=== PATIENT | male | born 1995 | race Caucasian/White ===

== ENCOUNTER 2021-02-20 16:31 | Emergency (ER) | payer OTHER, SELFPAY ==
[2021-02-20 16:43] VITALS: BP 156/102; PULSE 80; RESP 18; TEMP 36.6; O2SAT 98
--- NOTE | 2021-02-20 16:50 | ED.URI ---
HPI - URI/Sore Throat General Chief Complaint: Upper Respiratory Infection Stated Complaint: headache sore throat Time Seen by Provider: 02/20/21 16:50 Source: patient and RN notes reviewed History of Present Illness HPI Narrative: Patient is a 25-year-old male who presents the urgent care with complaints of headache and sore throat that started today. Patient states he has had a headache for the last 2 days and has been taking Tylenol. States that his entire family wants tested for Covid because they were at his [id number] recently and are concerned . Patient denies of any known fevers, nausea, vomiting. No other acute complaints. No acute distress noted. Patient aware of the plan of care. Some parts of this dictation were generated by voice recognition software and may contain typographical and/or grammatical inaccuracies. Related Data Home Medications Medication Instructions Recorded Confirmed cyclobenzaprine 10 mg PO TID 02/20/21 02/20/21 diclofenac sodium 75 mg PO DAILY 02/20/21 02/20/21 hydrocodone-acetaminophen 10 tablet PO TID 02/20/21 02/20/21 Allergies Allergy/AdvReac Type Severity Reaction Status Date / Time No Known Allergies Allergy Verified 02/20/21 16:53 Review of Systems Review of Systems: CONSTITUTIONAL: Denies fever, chills, or sweats. EYES: Denies visual changes, redness, or discharge. ENT: Denies rhinorrhea, congestion, otalgia. Reports of sore throat CARDIOVASCULAR: Denies chest pain, palpitations, or edema. RESPIRATORY: Denies cough or dyspnea. GASTROINTESTINAL: Denies abdominal pain, nausea, vomiting, or diarrhea. GENITOURINARY: Denies dysuria or hematuria. SKIN: Denies rash or itching. MUSCULOSKELETAL: Denies back pain, joint pain, or myalgia. NEUROLOGIC: Reports of headache All other systems reviewed are negative, except as documented in HPI. PMFSH Comments At the time of my signature, I reviewed and agree with the nursing past medical, surgical, social, and family history. There is no relevant family history pertinent to the patient complaint. Exam Narrative: GENERAL: This is a well-nourished, well-developed patient, in no apparent distress. HEAD: normocephalic, atraumatic. EYES: PERRL. Sclera clear/white. Vision is grossly intact. EARS: External ears normal, auditory canals clear and without drainage, bilateral cerumen noted without impaction, TMs normal without perforation. Hearing grossly intact. NOSE: External nose normal with no obvious nasal discharge, nares without redness, no rhinorrhea. THROAT: Mucous membranes moist, posterior pharynx clear. Mild postnasal drainage NECK: Neck supple CARDIOVASCULAR: Regular rate and rhythm without murmurs, gallops, or rubs. RESPIRATORY: Clear to auscultation. Breath sounds equal bilaterally. No wheezes, rales, or rhonchi. SKIN: warm, intact with no suspicious lesions or rash, good texture and turgor. NEURO: awake, alert, and oriented to person, place and time. There were no obvious focal neurologic abnormalities. EXTREMITIES: No clubbing, cyanosis, or edema. Course Vital Signs Vital signs: Vital Signs Temperature 97.8 F 02/20/21 16:43 Pulse Rate 80 02/20/21 16:43 Respiratory Rate 18 02/20/21 16:43 Blood Pressure 156/102 H 02/20/21 16:43 Pulse Oximetry 98 02/20/21 16:43 Temperature 97.8 F 02/20/21 16:43 Pulse Rate 80 02/20/21 16:43 Respiratory Rate 18 02/20/21 16:43 Blood Pressure 156/102 H 02/20/21 16:43 Pulse Oximetry 98 02/20/21 16:43 Reviewed-patient is informed that they may have pre-hypertension or hypertension based on a blood pressure reading in the department. I recommend the patient call the primary care provider listed on their discharge instructions or a physician of their choice this week to arrange follow-up for further evaluation of possible pre-hypertension or hypertension. MDM - URI/Sore Throat MDM Narrative Medical decision making narrative: Reviewed lab results with rosetta
== END 2021-02-20 17:24 | disposition home or self-care (01) ==
PROVIDERS: Emergency Provider Nurse Practitioner Family; PCP Family Medicine
DX: J02.9 Acute pharyngitis, unspecified (principal); Z20.822 Contact with and (suspected) exposure to COVID-19
CPT/HCPCS: 87081; 87880; 99203; G0463

== ENCOUNTER 2021-04-17 14:55 | Outpatient (CLI) | payer OTHER, SELFPAY ==
[2021-04-17 19:05] LABS: Hematocrit 46.7 % (42.0-52.0); Hemoglobin 15.9 g/dL (14.0-18.0); Mean Corpuscular Hemoglobin 29.1 pg (26-34); Mean Corpuscular Volume 85.4 fl (80-100); Mean Platelet Volume 9.5 fl (7.4-10.4); Platelet Count Result 333 k/mm3 (150-375); Red Blood Count 5.47 M/mm3 (4.6-6.20); Red Cell Distribution Width 12.3 % (11.5-14.5); White Blood Count 6.2 K/mm3 (4.5-10.0)
[2021-04-17 19:14] LABS: Hemoglobin A1C 4.8 % (<5.7)
[2021-04-17 19:31] LABS: Alanine Aminotransferase 58 U/L (4-50); Albumin Level 4.7 g/dL (3.5-5.1); Alkaline Phosphatase 77 U/L (38-126); Anion Gap 9 mmol/L (8-16); Aspartate Amino Transferase 48 U/L (17-59); Blood Urea Nitrogen 15 mg/dL (9-20); Calcium 9.7 mg/dL (8.4-10.2); Carbon Dioxide 25 mmol/L (22-30); Chloride 102 mmol/L (98-107); Cholesterol 166 mg/dL (0-200); Estimated Glomerular Filt Rate > 60; Glucose 102 mg/dL (65-110); HDL Direct 49 mg/dL; Potassium 4.1 mmol/L (3.4-5.0); Sodium 136 mmol/L (137-145); Triglycerides 157 mg/dL (<150)
[2021-04-17 19:42] LABS: LDL Cholesterol Direct 89 mg/dL
[2021-04-23 04:37] LABS: Amphetamines NEGATIVE ng/mL (<500); Barbiturates NEGATIVE ng/mL (<300); Benzodiazepines NEGATIVE ng/mL (<100); Cocaine Metabolite NEGATIVE ng/mL (<100); Codeine >10000 ng/mL (<50); Hydrocodone NEGATIVE ng/mL (<50); Hydromorphone NEGATIVE ng/mL (<50); Marijuana Metabolite NEGATIVE ng/mL (<20); Methadone Metabolite NEGATIVE ng/mL (<100); Morphine 2100 ng/mL (<50); Norhydrocodone NEGATIVE ng/mL (<50); Opiates POSITIVE ng/mL (<100); Oxidant NEGATIVE mcg/mL (<200); pH 7.3 (4.5-9.0)
== END 2021-04-17 14:56 | disposition home or self-care (01) ==
LOC: ANHBWCLAB 14:56
PROVIDERS: PCP Family Medicine; Visit Provider Family Medicine
DX: Z00.00 Encounter for general adult medical examination without abnormal findings (principal); E66.9 Obesity, unspecified; M54.50 Low back pain, unspecified; M41.9 Scoliosis, unspecified
CPT/HCPCS: 36415; 80053; 80061; 80299; 83036; 85027

== ENCOUNTER 2022-02-13 10:16 | Outpatient (CLI) | payer OTHER, SELFPAY ==
[2022-02-13 20:28] LABS: Alanine Aminotransferase 49 U/L (6-50); Albumin Level 4.5 g/dL (3.5-5.1); Alkaline Phosphatase 78 U/L (38-126); Aspartate Amino Transferase 67 U/L (17-59); Bilirubin,Total 0.9 mg/dL (0.2-1.3)
[2022-02-13 21:50] LABS: Hepatitis B Surface Antigen Negative (Negative)
[2022-02-13 21:53] LABS: HAV RESULT Negative (Negative); Hepatitis B Core IgM Result Negative (Negative)
[2022-02-13 22:08] LABS: Hepatitis C Virus Antibody Negative (Negative)
[2022-02-14 07:21] LABS: Rapid Plasma Reagin Non-Reactive (NonReactive)
[2022-02-15 14:21] LABS: HIV 1 2 Ag Ab 4th Gen w Rflxs Non-reactive (Non-reactive)
== END 2022-02-13 10:17 | disposition home or self-care (01) ==
PROVIDERS: PCP Family Medicine; Visit Provider Family Medicine
DX: R74.8 Abnormal levels of other serum enzymes (principal); R45.4 Irritability and anger; G47.00 Insomnia, unspecified; Z72.51 High risk heterosexual behavior
CPT/HCPCS: 36415; 80074; 80076; 80299; 86592; 87389; 87491; 87591; 87661

== ENCOUNTER 2023-04-21 10:55 | Emergency (ER) | payer OTHER, SELFPAY ==
[2023-04-21 11:05] VITALS: BP 141/84; PULSE 85; RESP 20; TEMP 36.6; O2SAT 97
--- NOTE | 2023-04-21 11:05 | ED.NAVMDI ---
HPI - Nausea/Vomiting/Diarrhea General Chief complaint: Nausea/Vomiting/Diarrhea Stated complaint: Abdominal Pain/Diarrhea/Nausea Time Seen by Provider: 04/21/23 11:05 Source: patient, RN notes reviewed and old records reviewed Mode of arrival: ambulatory Limitations: no limitations History of Present Illness HPI Narrative: 27-year-old male presents to the [facility] with nausea and diarrhea since he woke up at 9:00 a.m., 2 hours prior to arrival. States he has left lower quadrant cramping but no significant pain at this time. Patient states that he does not tried eating, is able to maintain sips of water. Requesting a work note Denies fevers, chest pain, shortness of breath. Patient states he has not taken any of his normal medications for anxiety your chronic pain due to of a family member and car problems. Has been out of his prescribed medication for over a month. Discussed with patient he will need to follow-up with primary care provider Onset (ago): hour(s) (2) Treatment prior to arrival: none Related Data Allergies Allergy/AdvReac Type Severity Reaction Status Date / Time Penicillins Allergy Unknown Unknown Verified 09/02/22 13:07 Review of Systems Review of Systems: All systems reviewed & are unremarkable except as noted in HPI and below Constitutional: Constitutional: Reports no additional constitutional complaints Eyes: Eyes: Reports no additional eye complaints ENT: Reports system reviewed and no additional complaints, except as documented Cardiovascular: Cardiovascular: Reports no additional cardiovascular complaints, Denies chest pain and Denies dyspnea Respiratory: Respiratory: Reports no additional respiratory complaints, Denies chest congestion, Denies cough and Denies dyspnea Gastrointestinal: Gastrointestinal: Reports as per HPI, Denies abdominal pain, Reports diarrhea, Reports nausea, Denies vomiting and Reports other (Left lower quadrant cramping) Musculoskeletal: Musculoskeletal: Reports no additional musculoskeletal complaints Integumentary/Breasts: Skin/Breast: Reports system reviewed and no additional complaints, except as docu Neurologic: Reports system reviewed and no additional complaints, except as documented Psychiatric: Psychiatric: Reports no additional psychiatric complaints Allergic/Immunologic: Allergic/Immunologic: Reports no additional allergic/immunologic complaints PMFSH Past Medical History Medical History Lower back pain Scoliosis Social History Social History (Reviewed 04/21/23 @ 17:03 by TRICIA Glass Smoking status: Never smoker Alcohol intake: never Substance use: never Lack of Transportation: YES Lack of Food: Never True Current Housing: I Have Housing Concerned About Future Housing: No Difficulty Paying Gas/Electric Bills: No Difficulty Paying for Meds: No Currently Unemployed: No Education: High School Diploma/GED Difficulty w/ Childcare or Family Care: No Living arrangements: with family Comments At the time of my signature, I reviewed and agree with the nursing past medical, surgical, social, and family history. There is no relevant family history pertinent to the patient complaint. Exam Const: General: cooperative, healthy appearing, comfortable, no acute distress, well developed, alert and well nourished Nutritional Appearance: well nourished and obese morbidly obese Orientation/consciousness: patient oriented x3 Limitations: no limitations HENMT: Head: normal to inspection Ears: hearing grossly normal bilaterally and external ears normal Face/Nose/Sinus: Normal external nose present, Normal nares present, Normal nasal mucous membranes and turbinates present, normal facial exam and face symmetric Face and sinus: normal facial exam and face symmetric Mouth: Yes lip normal and Yes moist mucous membranes Eyes: General: appearance normal, both eyes and all rel
[2023-04-21 11:06] VITALS: BP 141/84; PULSE 85; RESP 20; TEMP 36.6; O2SAT 97
== END 2023-04-21 11:22 | disposition home or self-care (01) ==
PROVIDERS: Emergency Provider Nurse Practitioner; PCP Family Medicine
DX: R11.2 Nausea with vomiting, unspecified (principal); R19.7 Diarrhea, unspecified; M41.9 Scoliosis, unspecified
CPT/HCPCS: 99213; G0463

== ENCOUNTER 2023-06-16 12:21 | Emergency (ER) | payer OTHER, SELFPAY ==
--- NOTE | 2023-06-16 12:27 | ED.URI ---
HPI - URI/Sore Throat General Chief Complaint: Upper Respiratory Infection Stated Complaint: Body pain/Sore throat/ Fever Time Seen by Provider: 06/16/23 12:35 Source: patient and RN notes reviewed Mode of arrival: ambulatory Limitations: no limitations History of Present Illness HPI Narrative: 28-year-old male presents concern for 2 day history of sore throat, cough, nasal drainage, headache. Reports his children are sick at home. Denies taking any medications for his symptoms. MD elicited complaint: cough and sore throat Related Data Allergies Allergy/AdvReac Type Severity Reaction Status Date / Time Penicillins Allergy Unknown Unknown Verified 09/02/22 13:07 Review of Systems Review of Systems: CONSTITUTIONAL: Reports malaise, fever. EYES: Denies visual changes, redness, or discharge. ENT: Reports rhinorrhea, congestion, and sore throat. CARDIOVASCULAR: Denies chest pain, palpitations, or edema. RESPIRATORY: Reports cough. Denies dyspnea. GASTROINTESTINAL: Denies abdominal pain, nausea, vomiting, diarrhea SKIN: Denies rash or itching. MUSCULOSKELETAL: Denies myalgia. NEUROLOGIC: Reports headache. All systems reviewed & are unremarkable except as noted in HPI and below PMFSH Past Medical History Medical History Lower back pain Scoliosis Social History Social History Smoking status: Never smoker Alcohol intake: never Substance use: never Lack of Transportation: YES Lack of Food: Never True Current Housing: I Have Housing Concerned About Future Housing: No Difficulty Paying Gas/Electric Bills: No Difficulty Paying for Meds: No Currently Unemployed: No Education: High School Diploma/GED Difficulty w/ Childcare or Family Care: No Living arrangements: with family Comments At time of signature, agree with nursing past medical, surgical, social and family history. There is no relevant family history pertinent to the presenting complaint Exam Narrative: GENERAL: Well-appearing, well-nourished, and in no acute distress. HEAD: Normocephalic EYES: PERRLA, conjunctivae clear ENT: Nares clear, turbinates edematous and erythematous, clear discharge. Mucous membranes moist. TM pearly pedersen with dull light reflex bilaterally; no tragal tenderness. Oropharynx not erythematous without lesions. Tonsils not enlarged and without exudate, no drooling, no hoarseness, no trismus, uvula midline. NECK: Supple. No lymphadenopathy CHEST: Clear to auscultation, breath sounds equal. No wheezing, rhonchi, rales, or stridor. No respiratory distress, speaks in full sentences. HEART: Regular rate and rhythm. No murmur heard. SKIN: Warm, dry, no rash. NEURO: Alert and oriented x3. PSYCH: Normal mood and affect Course Course Emergency Course: Patient is aware of diagnosis, understands and agrees to treatment plan. Anticipatory guidance given. Patient agrees to follow-up as directed and is aware of reasons to seek care at the emergency department. Portions of this record may have been created with voice recognition software Level of Care: Express Care Visit Vital Signs Vital signs: Reviewed. MDM - URI/Sore Throat MDM Narrative Medical decision making narrative: Differential diagnosis considered: Curtis virus, strep pharyngitis, allergic rhinitis, upper respiratory tract infection, sinusitis, rhinosinusitis, nasopharyngitis. viral pharyngitis, otitis media, otitis externa, pneumonia, bronchitis, viral cough syndrome, viral syndrome, and influenza. Exam findings show no acute concerns or changes; patient is non-toxic appearing and is in no distress. Patient is appropriate for outpatient treatment and follow-up. Lab Data Attestation: I reviewed the patient's lab results. Critical Care Time Critical Care Time Critical Care Time: No Discharge Plan Discharge Clinical Impression: Upper respira
[2023-06-16 12:36] VITALS: BP 170/94; PULSE 86; RESP 16; TEMP 37.2; O2SAT 98
== END 2023-06-16 13:13 | disposition home or self-care (01) ==
PROVIDERS: Emergency Provider Nurse Practitioner; PCP Family Medicine
DX: J02.9 Acute pharyngitis, unspecified (principal); J06.9 Acute upper respiratory infection, unspecified; Z20.822 Contact with and (suspected) exposure to COVID-19; M41.9 Scoliosis, unspecified
CPT/HCPCS: 87081; 87426; 87804; 87880; 99213; G0463

== ENCOUNTER 2023-09-17 10:00 | Outpatient (CLI) | payer OTHER, SELFPAY ==
[2023-09-17 19:05] LABS: Hematocrit 46.7 % (42.0-52.0); Hemoglobin 15.1 g/dL (14.0-18.0); Mean Corpuscular HGB Conc 32.3 g/dl (32-36); Mean Corpuscular Volume 89.6 fl (80-100); Mean Platelet Volume 9.7 fl (7.4-10.4); Platelet Count Result 303 k/mm3 (150-375); Red Blood Count 5.21 M/mm3 (4.6-6.20); Red Cell Distribution Width 13.1 % (11.5-14.5); White Blood Count 6.4 K/mm3 (4.5-10.0)
[2023-09-17 19:29] LABS: Alanine Aminotransferase 39 U/L (6-50); Albumin Level 4.4 g/dL (3.5-5.1); Alkaline Phosphatase 81 U/L (38-126); Anion Gap 10 mmol/L (4-12); Aspartate Amino Transferase 65 U/L (17-59); Bilirubin,Total 1.3 mg/dL (0.2-1.3); Blood Urea Nitrogen 14 mg/dL (9-20); Calcium 9.1 mg/dL (8.4-10.2); Carbon Dioxide 25 mmol/L (22-30); Chloride 105 mmol/L (98-107); Cholesterol 118 mg/dL (0-200); Estimated Glomerular Filt Rate > 60; Glucose 94 mg/dL (65-110); HDL Direct 35 mg/dL; Potassium 4.2 mmol/L (3.4-5.0); Sodium 140 mmol/L (137-145); Triglycerides 112 mg/dL (<150)
[2023-09-17 19:40] LABS: LDL Cholesterol Direct 68 mg/dL
== END 2023-09-17 10:01 | disposition home or self-care (01) ==
LOC: ANHBWCLAB 10:01
PROVIDERS: PCP Nurse Practitioner Adult Health; Visit Provider Nurse Practitioner Adult Health
DX: Z13.9 Encounter for screening, unspecified (principal); E66.9 Obesity, unspecified
CPT/HCPCS: 36415; 80053; 80061; 83036; 84443; 85027

== ENCOUNTER 2023-09-22 11:00 | Outpatient (CLI) | payer OTHER, SELFPAY ==
[2023-09-22 20:10] LABS: Free T4 Free Thyroxine 0.94 ng/mL (0.78-2.19)
[2023-09-24 07:39] LABS: Thyroid Peroxidase Antibodies 239 IU/mL (<9)
== END 2023-09-22 11:01 | disposition home or self-care (01) ==
LOC: ANHBWCLAB 11:01
PROVIDERS: PCP Nurse Practitioner Adult Health; Visit Provider Nurse Practitioner Adult Health
DX: R94.6 Abnormal results of thyroid function studies (principal)
CPT/HCPCS: 36415; 84439; 86376

== ENCOUNTER 2023-10-02 14:20 | Outpatient (CLI) | payer OTHER, SELFPAY ==
--- NOTE | ~2023-10-02 | US_ITS ---
EXAMINATION: US thyroid DATE: 10/02/2023 14:42 INDICATION: Autoimmune thyroiditis. TECHNIQUE: Multiple ultrasound images of the thyroid were obtained. COMPARISON: None. FINDINGS: The right thyroid lobe measures 4.9 x 2.3 x 2.4 cm. The left thyroid lobe measures 5.8 x 2.1 x 2.6 c m. The thyroid demonstrates heterogeneous hypoechogenicity. No discrete nodule. Vascularity is mp l. IMPRESSION: 1. Heterogeneous thyroid, likely chronic lymphocytic (Denise's) thyroiditis. Reviewed, dictated and finalized at location E.
== END 2023-10-02 14:21 | disposition home or self-care (01) ==
LOC: ANHIMG 14:21
PROVIDERS: PCP Nurse Practitioner Adult Health; Visit Provider Nurse Practitioner Adult Health
DX: E06.3 Autoimmune thyroiditis (principal)
CPT/HCPCS: 76536

== ENCOUNTER 2023-11-24 14:52 | Outpatient (CLI) | payer OTHER, SELFPAY | END 2023-11-24 14:53 | disposition home or self-care (01) | LOC: ANHBWCLAB 14:54 | PROVIDERS: PCP Nurse Practitioner Adult Health; Visit Provider Nurse Practitioner Adult Health | DX: E06.3 Autoimmune thyroiditis (principal) | CPT/HCPCS: 36415; 84443 ==

== ENCOUNTER 2023-11-28 10:52 | Emergency (ER) | payer OTHER, SELFPAY ==
--- NOTE | 2023-11-28 10:56 | ED.NAVMDI ---
HPI - Nausea/Vomiting/Diarrhea General Chief complaint: Nausea/Vomiting/Diarrhea Stated complaint: Abdominal Pain/Diarrhea Time Seen by Provider: 11/28/23 11:18 Source: patient and RN notes reviewed Mode of arrival: ambulatory Limitations: no limitations History of Present Illness HPI Narrative: 28-year-old male presents with concern of for several day history of diarrhea. Reports he missed work today because of his diarrhea. He denies fever, body aches, chills, sweats, nausea, vomiting, abdominal pain. Reports abdominal cramping. Denies taking any medication for his symptoms. Denies bloody stools. MD elicited complaint: diarrhea Related Data Allergies Allergy/AdvReac Type Severity Reaction Status Date / Time Penicillins Allergy Unknown Unknown Verified 11/28/23 10:57 Review of Systems Review of Systems: CONSTITUTIONAL: Denies malaise, chills, sweats, or fever. ENT: Denies rhinorrhea, congestion, sinus pain, otalgia or sore throat. CARDIOVASCULAR: Denies chest pain, palpitations, or edema. RESPIRATORY: Denies cough or dyspnea. GASTROINTESTINAL: Denies abdominal pain, nausea, vomiting, bloody, or mucous stools. Reports diarrhea GENITOURINARY: Denies dysuria or hematuria. MUSCULOSKELETAL: Denies myalgia. NEUROLOGIC: Denies headache. All systems reviewed & are unremarkable except as noted in HPI and below PMFSH Past Medical History Medical History Lower back pain Scoliosis Social History Social History Smoking status: Never smoker Alcohol intake: never Substance use: never Lack of Transportation: YES Lack of Food: Never True Current Housing: I Have Housing Concerned About Future Housing: No Difficulty Paying Gas/Electric Bills: No Difficulty Paying for Meds: No Currently Unemployed: No Education: High School Diploma/GED Difficulty w/ Childcare or Family Care: No Living arrangements: with family Comments At time of signature, agree with nursing past medical, surgical, social and family history. There is no relevant family history pertinent to the presenting complaint Exam Narrative: GENERAL: Well-appearing, well-nourished, and in no acute distress. HEAD: Normocephalic, atraumatic. EYES: PERRLA, conjunctivae clear, and EOMI. ENT: Nares clear, turbinates pink, no rhinorrhea or epistaxis. Mucous membranes moist. Oropharynx without edema, erythema, or lesions. Tonsils not enlarged and without exudate. NECK: Supple. No lymphadenopathy CHEST: Speaks in full sentences. No respiratory distress. HEART: Regular rate and rhythm. SKIN: Warm, dry, no rash. NEURO: Alert and oriented x3. PSYCH: Normal mood and affect Course Course Emergency Course: Patient is aware of diagnosis, understands and agrees to treatment plan. Anticipatory guidance given. Patient agrees to follow-up as directed and is aware of reasons to seek care at the emergency department. Portions of this record may have been created with voice recognition software Level of Care: Express Care Visit Vital Signs Vital signs: Reviewed. MDM - Nausea/Vomiting/Diarrhea MDM Narrative Medical decision making narrative: No evidence of pancreatitis, AAA, cholecystitis, choledocholithiasis, cholangitis, mesenteric ischemia, small bowel obstruction, diverticulitis, colitis, appendicitis, or pelvic etiology such as ovarian/testicular torsion, TOA, or ectopic . Patient has no history of peptic ulcer, H. pylori, chronic aspirin NSAID or corticosteroid use, chronic alcohol use, no history of inflammatory bowel disease, no history of active abdominal infection or malignancy. Patient has no history of hernia or intra-abdominal surgeries, patient denies absence of flatus, constipation, melena, hematemesis. Patient denies post-prandial pain. No pain-out of proportion. Exam findings show no acute concerns or changes; armani
[2023-11-28 11:05] VITALS: BP 151/53; PULSE 79; RESP 20; TEMP 36.7; O2SAT 98
== END 2023-11-28 11:28 | disposition home or self-care (01) ==
PROVIDERS: Emergency Provider Nurse Practitioner; PCP Nurse Practitioner Adult Health
DX: R19.7 Diarrhea, unspecified (principal)
CPT/HCPCS: 99211; 99213; G0463

== ENCOUNTER 2024-01-14 10:45 | Outpatient (CLI) | payer OTHER, SELFPAY | END 2024-01-14 10:46 | disposition home or self-care (01) | LOC: ANHBWCLAB 10:47 | PROVIDERS: PCP Nurse Practitioner Adult Health; Visit Provider Nurse Practitioner Adult Health | DX: E06.3 Autoimmune thyroiditis (principal) | CPT/HCPCS: 36415; 84443 ==

== ENCOUNTER 2024-01-30 09:24 | Emergency (ER) | payer OTHER, SELFPAY ==
[2024-01-30 09:36] VITALS: BP 130/86; PULSE 84; RESP 16; TEMP 36.8; O2SAT 98
--- NOTE | 2024-01-30 10:08 | ED.EYEPROB ---
HPI - Eye Problem General Chief complaint: Eye Problems Stated complaint: [place]/red LT Eye Time Seen by Provider: 01/30/24 10:08 Source: patient, RN notes reviewed and old records reviewed Mode of arrival: ambulatory Limitations: no limitations History of Present Illness HPI Narrative: 28-year-old male to Express Care for complaint of left eye itching, irritation, with yellow drainage since yesterday. Patient denies recent illness, pain, visual changes, fever, pertinent medical history. Patient has not attempted to treat at home. Patient resting in exam room in no acute distress. Respirations even and nonlabored. Related Data Allergies Allergy/AdvReac Type Severity Reaction Status Date / Time Penicillins Allergy Unknown Unknown Verified 12/15/23 09:51 Review of Systems Review of Systems: All systems reviewed & are unremarkable except as noted in HPI and below Constitutional: Constitutional: Reports no additional constitutional complaints Eyes: Eyes: Reports as per HPI, Reports eye discharge ( Left) and Reports itchy eyes ( left) ENT: Reports system reviewed and no additional complaints, except as documented Cardiovascular: Cardiovascular: Reports no additional cardiovascular complaints, Denies chest pain and Denies dyspnea Respiratory: Respiratory: Reports no additional respiratory complaints, Denies cough and Denies dyspnea Musculoskeletal: Musculoskeletal: Reports no additional musculoskeletal complaints Neurologic: Reports system reviewed and no additional complaints, except as documented Psychiatric: Psychiatric: Reports no additional psychiatric complaints PMFSH Past Medical History Medical History Lower back pain Scoliosis Social History Social History Smoking status: Never smoker Alcohol intake: never Substance use: never Lack of Transportation: YES Lack of Food: Never True Current Housing: I Have Housing Concerned About Future Housing: No Difficulty Paying Gas/Electric Bills: No Difficulty Paying for Meds: No Currently Unemployed: No Education: High School Diploma/GED Difficulty w/ Childcare or Family Care: No Living arrangements: with family Comments At the time of my signature, I reviewed and agree with the nursing past medical, surgical, social, and family history. There is no relevant family history pertinent to the patient complaint. Exam Const: General: cooperative, no acute distress, alert, uncomfortable and well nourished Nutritional Appearance: well nourished Orientation/consciousness: patient oriented x3 Limitations: no limitations HENMT: Head: normal to inspection Ears: external ears normal Face/Nose/Sinus: Normal external nose present, Normal nares present, normal facial exam, No erythema and No edema Face and sinus: normal facial exam, no erythema and no edema Mouth: Yes Normal oral and palatal mucosa present Eyes: Visual Duffy: normal visual duffy by confrontation Alignment and Position: alignment normal and position normal Periorbital: periorbital findings normal Eyelids: eyelids normal Conjunctivae: conjunctival abnormality left conjunctival injection and discharge mucoid Sclera: scleral abnormality left scleral injection diffuse Neck: Neck: normal visual inspection, full ROM and no meningeal signs Chest: Chest palpation & inspection: normal inspection of the chest Resp: Effort & Inspection: normal respiratory effort and able to speak in complete sentences Auscultation: clear to auscultation bilaterally Cardio: Jugular venous distension: no JVD Rate: regular rate Rhythm: regular rhythm Back/Spine/Pelvis: Cervical Spine: cervical ROM normal Skin: General skin exam: normal color, no rashes or lesions noted and turgor normal Neuro: General: patient oriented x3, gait normal, moves all extremities and no meningeal signs
== END 2024-01-30 10:29 | disposition home or self-care (01) ==
PROVIDERS: Emergency Provider Nurse Practitioner Family; PCP Nurse Practitioner Adult Health
DX: H10.33 Unspecified acute conjunctivitis, bilateral (principal); M41.9 Scoliosis, unspecified
CPT/HCPCS: 99213; G0463

== ENCOUNTER 2024-03-16 11:39 | Outpatient (CLI) | payer OTHER, SELFPAY ==
[2024-03-16 20:04] LABS: Basophils Absolute Auto 0.1 K/mm3 (0.0-0.1); Basophils Percent Auto 0.9 % (0.2-1.2); Eosinophils Absolute Auto 0.3 K/mm3 (0-0.3); Eosinophils Percent Auto 4.5 % (0-4.4); Hematocrit 45.1 % (42.0-52.0); Hemoglobin 15.2 g/dL (14.0-18.0); Immature Granulocyte Absolute 0.01 K/mm3 (0.00-0.031); Immature Granulocyte Percent A 0.2 % (0-0.5); Lymphocytes Absolute Auto 2.24 K/mm3 (0.9-3.2); Lymphocytes Percent Auto 39.2 % (18.3-44.2); Mean Corpuscular HGB Conc 33.7 g/dl (32-36); Mean Corpuscular Hemoglobin 29.7 pg (26-34); Mean Corpuscular Volume 88.1 fl (80-100); Mean Platelet Volume 9.8 fl (7.4-10.4); Monocytes Absolute Auto 0.7 K/mm3 (0.1-0.6); Monocytes Percent Auto 11.5 % (2.6-8.5); Neutrophils Absolute Auto 2.5 K/mm3 (1.3-6.7); Neutrophils Percent Auto 43.7 % (45.5-73.1); Platelet Count Result 323 k/mm3 (150-375); Red Blood Count 5.12 M/mm3 (4.6-6.20); Red Cell Distribution Width 12.9 % (11.5-14.5); White Blood Count 5.7 K/mm3 (4.5-10.0)
[2024-03-16 20:38] LABS: Alanine Aminotransferase 64 U/L (6-50); Albumin Level 4.2 g/dL (3.5-5.1); Alkaline Phosphatase 70 U/L (38-126); Anion Gap 8 mmol/L (4-12); Aspartate Amino Transferase 98 U/L (17-59); Blood Urea Nitrogen 15 mg/dL (9-20); Carbon Dioxide 26 mmol/L (22-30); Chloride 104 mmol/L (98-107); Cholesterol 139 mg/dL (0-200); Estimated Glomerular Filt Rate > 60; Glucose 99 mg/dL (65-110); HDL Direct 35 mg/dL; Sodium 138 mmol/L (137-145); Triglycerides 146 mg/dL (<150)
[2024-03-16 20:49] LABS: LDL Cholesterol Direct 64 mg/dL
[2024-03-16 21:34] LABS: Hemoglobin A1C 5.2 % (<5.7)
[2024-03-16 21:42] LABS: Free T4 Free Thyroxine Reflex 0.83 ng/dL (0.78-2.19)
[2024-03-16 22:26] LABS: Total Triiodothyronine (T3) 1.66 NG/ML (0.97-1.69)
== END 2024-03-16 11:40 | disposition home or self-care (01) ==
LOC: ANHBWCLAB 11:40
PROVIDERS: PCP Nurse Practitioner Adult Health; Visit Provider Nurse Practitioner Adult Health
DX: I10 Essential (primary) hypertension (principal); E66.9 Obesity, unspecified
CPT/HCPCS: 36415; 80053; 80061; 83036; 84439; 84443; 84480; 85025

== ENCOUNTER 2024-07-28 12:47 | Outpatient (CLI) | payer OTHER, SELFPAY ==
--- OUTSIDE RECORDS SUMMARY | 2024-07-28 14:15 | XMS_ITS | Referral Summary ---
Author Organization [facility] Address [address] [place] [address] Care Team Providers Care Respiratory Medicine Physician Name Role Phone Josh Ackerman MD Primary Care Provider [phone] Source Comments [facility],non-owned Affiliates and Associated Physician Practices is amultiple site organization consisting of ambulatory clinics and hospital sitesin [place], [place], [place] and [place]. This disclosure is being madepursuant to the Care Everywhere program and may not contain all information available regarding this patient. Last updated 18.[facility] Social History Tobacco Use Types Packs/Day Years Used Date Smoking Tobacco: Never Assessed Sex and Gender Information Value Date Recorded Sex Assigned at Not on file Gender Identity Not on file Sexual Orientation Not on file Plan of Treatment Not on file Care Teams Respiratory Medicine Physician Relationship Specialty Start Date End Date Josh Ackerman MD [address] [place], [place] [id number] PCP - General 07/06/09
--- OUTSIDE RECORDS SUMMARY | 2024-07-28 14:15 | XMS_ITS | Clinical Summary ---
Author Organization [facility] Address [address] [place] [address] Care Team Providers Care Lapidarist Name Role Phone Josh Ackerman MD Primary Care Provider [phone] Source Comments [facility],non-owned Affiliates and Associated Physician Practices is amultiple site organization consisting of ambulatory clinics and hospital sitesin [place], [place], [place] and [place]. This disclosure is being madepursuant to the Care Everywhere program and may not contain all information available regarding this patient. Last updated 18.[facility] Social History Tobacco Use Types Packs/Day Years Used Date Smoking Tobacco: Never Assessed Sex and Gender Information Value Date Recorded Sex Assigned at Not on file Gender Identity Not on file Sexual Orientation Not on file Plan of Treatment Health Maintenance Due Date Last Done Comments HIV SCREENING 2009 HEPATITIS C SCREENING 05/03/2012 DTAP/TDAP/TD VACCINES (1 - Tdap) 2013 HEPATITIS B VACCINE (1 of 3 - 19+ 3-dose series) 2013 COVID-19 VACCINE ( - 2023-2 5 season) 2024 INFLUENZA VACCINE (#1) 2024 DEPRESSION SCREENING 05/18/2024 ZOSTER VACCINE (1 of 2) 2044 HIB VACCINE Aged Out No longer eligi ble based on patient's age to complete this topic HPV VACCINE Aged Out No longer eligi ble based on patient's age to complete this topic MENINGOCOCCAL (Group B) VACC INE SHARED DECISION-MAKING Aged Out No longer eligibl e based on patient's age to complete this topic MENINGOCOCCAL GROUPS A/C/Y/W VACCINE Aged Out No longer eligible b ased on patient's age to complete this topic PNEUMOCOCCAL VACCINE Aged Out No long er eligible based on patient's age to complete this topic Care Teams Lapidarist Relationship Specialty Start Date End Date Josh Ackerman MD [address] [place] [phone] PCP - General 07/06/09
--- OUTSIDE RECORDS SUMMARY | 2024-07-28 14:15 | XMS_ITS ---
Author Organization [facility] Address [address] [place] [address] Phone Care Team Providers Care Negative Notcher Name Role Phone Edgar Orourke MD Primary Care Provider [phone] [facility] Status:Enrolled (Active) Start date:06/15/2024 Enrollment date:06/15/2024 Related social drivers of health:Intimate Partner Violence, Social Connections, Alcohol Use, Financial Resource Strain, Depression, Stress, Physical Activity, Food Insecurity, Transportation Needs, Housing Stability, Utilities Continued Care and Services Coordination
--- OUTSIDE RECORDS SUMMARY | 2024-07-28 14:15 | XMS_ITS | Clinical Summary ---
Author Organization [facility] Address [address] [place] [address] Phone Care Team Providers Care Life Skills Worker Name Role Phone Edgar Orourke MD Primary Care Provider [phone] Allergies Active Allergy Reactions Criticality Noted Date Comments Azithromycin Rash 12/31/2015 Codeine Rash 04/02/2022 Penicillins Rash 04/19/2015 Medications ondansetron (Zofran ODT) 4 MG TABLET DISPERSIBLE Take 1 Tablet by mouth every 8 hours as needed for Nausea - 1st line. 10 Tablet 2 Active dicyclomine (BENTYL) 20 MG Tablet Take 1 Tablet by mouth every 6 hours. 30 Tablet 2 Active Misc. Devices Misc Supply and instructions: 1 Each 2 Active ibuprofen (MOTRIN) 600 MG Tablet Take 1 Tablet by mouth every 6 hours as needed for Moderate or more severe pain. 30 Tablet 4 Active Active Problems Problem Noted Date Diagnosed Date Strep pharyngitis 06/08/2018 Immunizations Immunization Administration Dates Next Due TDAP Vaccine 07/29/2023 Social History Tobacco Use Types Packs/Day Years Used Date Smoking Tobacco: Never Smokeless Tobacco: Never Tobacco Cessation:Counseling Given: Not Answered Alcohol Use Standard Drinks/Week Comments Yes 0 (1 standard drink = 0.6 oz pur e alcohol) Socially Sex and Gender Information Value Date Recorded Sex Assigned at Male 08/30/2023 1:16 AM CDT Legal Sex Male 11:15 PM CDT Gender Identity Male 08/30/2023 1:16 AM CDT Sexual Orientation Not on file Last Filed Vital Signs Vital Sign Reading Time Taken Comments Blood Pressure 132/81 01/11/2024 11:45 PM CDT Pulse 85 01/12/2024 12:45 AM CDT Temperature 37.3 C (99.1 F) 01/11/2024 10:11 PM CDT Respiratory Rate 15 01/12/2024 12:45 AM CDT Oxygen Saturation 98% 01/12/2024 12:45 AM CDT Inhaled Oxygen Concentration - - Weight 129.3 kg (285 lb) 01/11/2024 10:11 PM CDT Height 175.3 cm (5' 9 ) 01/11/2024 10:11 PM CDT Body Mass Index 42.09 01/11/2024 10:11 PM CDT Plan of Treatment Health Maintenance Due Date Last Done Comments Hepatitis C Virus (HCV) Screening 1994 Influenza Immunization (#1) 2024 12/0 12/2010, 03/24/2005, 03/21/2004, Additional history exists SARS-COV-2 Immunization ( season) 2024 Td Immunization Every 10 Years (Adults With 1 Tdap) 07/28/2033 07/29/2023, 11/15/2012, 10/15/2005 Respiratory Syncytial Virus (RSV) Immunization (Adult) (1 - 1-dose 75+ series) 2069 Hepatitis B Immunization Completed 995, 1994, 1994 Meningococcal Immunization (ACWY) Completed 04/24/2011, 10/19/2007 DTaP/Tdap/Td Immunization Discontinued 2023, 11/15/2012, 10/15/2005, Additional history exists Pneumococcal Immunization Combined Aged Out No longer eligible based on patient's age to complete this topic Rotavirus Immunization Aged Out No lo nger eligible based on patient's age to complete this topic Insurance MEDICAID [employer] Care Teams Life Skills Worker Relationship Specialty Start Date End Date Edgar Orourke MD [address] [place] [id number] PCP - General Family Medicine 05/26/23
--- OUTSIDE RECORDS SUMMARY | 2024-07-28 14:15 | XMS_ITS | Data Portability ---
Author Organization [facility] Address [address] [place] [address] Assessment No assessment recorded. Plan of Treatment Reminders Order Date Submit Date Provider Last Modified By Organization Details Last Modified Time Details Appointments None recorded. Lab CMP, serum or plasma 2014 015 [email or web address] [facility], [address] [place] [address], [address], [place], [address], 5 16:37:20 HbA1c (hemoglobin A1c), blood 2014 015 [email or web address] [facility], [address] [place] [address], [address], [place], [address], 5 16:37:20 lipid panel, serum 2014 015 [facility], [address] [place] [address], [address], [place], [address], 5 16:37:20 TSH, serum or plasma 2014 015 [id number] [facility], [address] [place] [address], [address], [place], [address], 5 16:37:21 CBC 2014 015 [email or web address] [facility], [address] [place] [address], [address], [place], [address], 5 16:37:21 Referral physical therapist referral 2015 016 [email or web address] Not available 6 08:01:44 neurologist referral 2015 016 [email or web address] Vincent Amaya MD (Neurology), [address] [place] [address] [place], [address], 6 08:11:56 Procedures None recorded. Surgeries None recorded. Imaging None recorded. Medication Orders cyclobenzap rine 10 mg tablet 2015 016 nsuthan Not available 6 11:08:50 Mobic 15 mg tablet 2014 015 [id number] [address] [place], [place], [id number], 5 09:04:36 loratadine 10 mg tablet 2014 015 [id number], [address] [place], [place], [id number], 5 09:04:36 Flonase 50 mcg/actuati on nasal spray,suspe nsion 2014 015 [id number], [address] [place], [place], [id number], 5 09:04:36 Patient TargetsNo targets recorded. Patient Instructions Encounter Date Encounter Id Patient Instructions Last Modified By Organization Details Last Modified Time 03/14/2015 [id number] Take meds as prescribed Healthy diet/ exercise f/u in 6 month nsuthan Not available 03/14/2015 09:04:37 05/23/2015 [id number] back stretches: exercises nsuthan Not available 05/23/2015 11:08:50 keep f/u nsuthan Not available 2015 11:08:50 Reason for Referral Referring Physician: Giovanni Ho, Internal Medicine, Encounter Date: 05/23/2015 Neurologist Referral for Monica goldstein Referring Physician: Giovanni Ho, Internal Medicine, Encounter Date: 05/23/2015 Results Created Date Observation Date Name Description Value Unit Range Abnormal Flag Note LastModifiedBy Organization Detail LastModifiedTime 05/30/19 15 05/29/2014 oswald baugh/maria luisa stock tic resul t No observ ation record ed. [email or web address] Not Available 2014 12:57:55 09/10/19 15 09/09/2014 x-ray , forea rm No observ ation record ed. [facility] ([facility]) Sched[address] [place], [address], 09/11/2014 14:16:18 10/05/19 15 10/04/2014 x-ray , foot No observ ation record ed. [facility] ([facility]) Sched[address] [place], [address], 10/04/2014 12:46:13 03/16/20 15 03/16/2015 x-ray , chest No observ ation record ed. [facility] ([facility]) Sched[address] [place], [address], 03/19/2015 13:16:41 Result Notes None recorded. Problems Name Problem SNOMED Code Status Onset Date Resolution Date Notes Provider Name and Address Organization Details Recorded Time Pain in wrist 56595568 Active Thor Ho MD Attn: Accounting ,[address] [place], [address] , [place] [facility] 5 09:04:36 Allergic rhinitis 35981198 Active Thor Ho MD Attn: Accounting ,[address] [place], [address] , [place] [facility] 5 09:04:36 Morbid obesity 791048825 Active Thor Ho MD Attn: Accounting ,[address] [place], [address] , [place] [facility] 5 09:04:36 Low back pain 226719929 Active Thor Ho MD Attn: Accounting ,[address] [place], [address] , [facility] 6 11:08:50 Seizure 10224564 Active Thor Ho MD Attn: Accounting ,[address], [place], [address] , [facility] 6 11:08:50 Problem Notes None recorded. Procedures Surgical History None recorded. Imaging Results Imaging Date Name Status LastModified by Organiz ation Details LastModified Time 05/29/2014 imaging/diag nostic result completed nsuthan Information not available 05/30/2014 12:57:55 09/09/2014 x-ray, forearm completed nsuthan [facility] ([facility]) Scheduling [address] [place], [address], 09/11/2014 14:16:18 10/04/2014 x-ray, foot completed nsuthan [facility] ([facility]) Scheduling [address] [place], [address], 10/04/2014 12:46:13 03/16/2015 x-ray, chest completed nsuthan [facility] ([facility]) Sched[address] [place], [address], 03/19/2015 13:16:41 Procedure Notes None recorded. Medical Equipment None Reported. Allergies Allergen ID Allergen Name Allergen Category Reaction Reaction Severity Criticality Documentation Date Start Date Code Code System Note Provider Name and Address Organization Details Recorded Time 22189 penicilli n V Not available Not available Not available Not available 05/25/2014 7984 RxNorm Not Available Not Available Not Available Medications Name Sig Start Date Stop Date Status Note LastModified by Organization Details LastModified Time cyclobenzaprine 10 mg tablet Take 1 tablet every day by oral route at bedtime. active Not Available Not Available No t Available azithromycin 250 mg tablet active Not Available Not Availabl e Not Available ibuprofen 800 mg tablet active Not Available Not Available No t Available Lidocaine Viscous 2 % mucosal solution active Not Available Not Available Not Available meloxicam 15 mg tablet TAKE 1 TABLET BY MOUTH EVERY DAY WITH A MEAL NEEDED FOR PAIN 2014 active Not Available Not Available Not Avai lable prednisone 20 mg tablet active Not Available Not Available No t Available acetaminophen 300 mg-codeine 30 mg tablet active Not Available Not Available Not Available ciprofloxacin 500 mg tablet active Not Available Not Availabl e Not Available sulfamethoxazol e 800 mg-trimethoprim 160 mg tablet active Not Available Not Availabl e Not Available famotidine 20 mg tablet active Not Available Not Available No t Available Cheratussin AC 10 mg-100 mg/5 mL oral liquid active Not Available Not Availab le Not Available ibuprofen 600 mg tablet active Not Available Not Available No t Available fluticasone propionate 50 mcg/actuation nasal spray,suspensio n INSTILL 1 SPRAY IN EACH NOSTRIL EVERY DAY 2014 active Not Available Not Available Not Avai lable loratadine 10 mg tablet Take 1 tablet every day by oral route. 2014 active Not Available Not Available Not Avai lable Mucus Relief ER 600 mg tablet, extended release active Not Available Not Available Not Available Vitals Date Recorded Respiratory rate Body weight Oxygen saturation Oxygen saturation in Arterial blood by Pulse oximetry Body height Body mass index (BMI) Body temperature Heart rate Systolic blood pressure Diastolic blood pressure Provider Name and Address Organization Details Last Updated DateTime 5 12 /min 287697. 932253 g 97 % 97 % 175.26 cm 41.8 kg/m2 97.6 [degF] 79 /min 130 mm[Hg] 84 mm[Hg] Clari Arellano MA [facility] 5 08:38:15 Date Recorded Respiratory rate Body height Body temperature Oxygen saturation Oxygen saturation in Arterial blood by Pulse oximetry Body weight Heart rate Body mass index (BMI) Systolic blood pressure Diastolic blood pressure Provider Name and Address Organization Details Last Updated DateTime 6 16 /min 175.26 cm 97.7 [degF] 99 % 99 % 639784. 61710 g 77 /min 42.4 kg/m2 130 mm[Hg] 80 mm[Hg] Clari Arellano MA [facility] 6 10:38:40 Social History Question Answer Notes LastModified by Organizat ion Details LastModified Time Tobacco Smoking Status Never Smoker Clari Arellano MA null, [facility] 03/14/2015 08:41:36 What Is Your Level Of Alcohol Consumption? None [email or web address] Information not available 03/14/2015 Sex: Unknown Functional Status None recorded. Mental Status None recorded. Family History Relationship Description Onset Age of this Age Resolved Age Notes LastModified by Organization Details LastModified Time Mother Diabetes mellitus [email or web address] Not available 2014 11:54:30 Medical History Condition Response Depression Y Allergies Y Immunizations Vaccine Type Date Status Note Provider Nam e and Address Organization Details Recorded Time Influenza, split virus, trivalent, preservative 5 completed Not Available [facility] 06/04/2019 02:47:17 Td (adult) 3 completed Thor Ho MD Attn: Accounting,[address] [place], [address], [facility] 03/14/2015 08:49:53 Past Encounters Encounter ID Performer Location Encounter Start Date Encounter Closed Date Diagnosis/Indication Diagnosis SNOMED-CT Code Diagnosis ICD10 Code Diagnosis Note [id number] MD Anusha Amaralhalto (Adult Med) [address] [place] [address] 05/25/2014 10:50:05 05/25/2014 16:29:05 Influenza vaccine needed [id number] [id number] MD Anusha Amaralhalto (Adult Med) [address] [place] [address] 03/14/2015 08:18:44 03/14/2015 09:14:02 Pain in wrist 59480880 M25.532 with h/o fx in the past as a child Mobic prn for pain wrist splint Allergic rhinitis 419580 04 J30.2 Morbid obesity 773853612 E66.01 diet and exercise discussed with pt [id number] [facility] [address] [facility] [place] [address] 05/23/2015 10:31:29 05/24/2015 09:06:01 Low back pain 600433343 M54.5 possibly muscle strain /obesity pt to loose wt Refer to PT Seizure 82047439 G40.89 Refer to neurologis t for EEG and further evaluation Advised pt not to drive for now Health Concerns Section Related Observation LastModified by Organization Detai ls LastModified Time None Recorded Concern Status LastModified by Organization Details LastModified Time None Recorded Advance Directives Directive None Recorded Payers Encounter Date Sequence Insurance Name Policy Number Policy Sky Covered Member ID Sky Member ID Guarantor Name 05/25/2014 1 [facility] - DOS PRIOR TO 2020 (MEDICAID REPLACEMENT - HMO) Mata Manoj [id number] [place] 03/14/2015 1 [place] [employer] [place] [employer] Mata Manoj [id number] [place] 05/23/2015 1 [facility] (MEDICAID HMO) Mata Manoj [id number] [place] Notes Date Note Type Note Provider Name and Address Organization Details Recorded Time 6 text/html Back PainReported bypatient.Location:pain is not radiating Quality:dull Severity:moderate (5-7) Duration:chronic Context:prior back problems Aggravating Factors:movement/positio chaim Associated Symptoms:no weak limbs; no incontinenceGeneric HPI TemplateReported bypatient.Context:pt went to ER for seizure like activity which lasted for a minute. CT head was normal per pt.Notes:Denied any more episodes. Denied tongue biting or urinary incontinence. pt is advised to have EEG done. Thor Ho MD Attn: Accounting,[address] [place], [address], [facility] 05/23/2015 11:09:22
--- OUTSIDE RECORDS SUMMARY | 2024-07-28 14:15 | XMS_ITS | Patient Health Summary ---
Author Organization [facility] Address [address] [place] [address] Care Team Providers Care Phytopathology Teacher Name Role Phone Josh Ackerman MD Primary Care Provider [phone] Note from [facility],non-owned Affiliates and Associated Physician Practices is amultiple site organization consisting of ambulatory clinics and hospital sitesin [place], [place], [place] and [place]. This disclosure is being madepursuant to the Care Everywhere program and may not contain all information available regarding this patient. Last updated 18.[facility] Social History Tobacco Use Types Packs/Day Years Used Date Smoking Tobacco: Never Assessed Sex and Gender Information Value Date Recorded Sex Assigned at Not on file Gender Identity Not on file Sexual Orientation Not on file Procedures * GROSS + MICRO EXAM(Performed 07/06/2009) Performed for Hemangioma Of Unspecified Site Results * GROSS + MICRO EXAM (07/06/2009 12:37 PM CORPORATE LEGAL ASSISTANT) [facility] Clinical History [facility] Comment: The patient is a 14-year-old boy who underwent excision of a left areolar pyogenic granuloma. Gross Description [facility] Comment: Submitted fresh in one container for gross and microscopic examination, labeled with the patient's name, Mata Aranda, and granuloma left breast, is a 7 x 6 mm ellipse of purple-hopson skin with subcutaneous tissue excised to a depth of 4 mm. Cut surface reveals deep red subcutaneous tissue. The specimen is bisected and submitted entirely as A1. 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 This case has been personally reviewed and interpreted by the attending (teaching) pathologist. Semiconductor Wafers Etcher Stripper STEFANIE RUIZ, [facility] Resident in Pathology Anish Amaya D.O. [facility] Pathologist Arvind abraham M.D. [facility] Electronically Signed By Arvind abraham M.D. [facility] GRANULOMA / Unknown 07/06/2009 12:37 PM CORPORATE LEGAL ASSISTANT Singh Darden MD LAB - PATHOLOGY/C YTOLOGY ORDERABLES [facility] Care Teams Phytopathology Teacher Relationship Specialty Start Date End Date Josh Ackerman MD [address] [place], [place] [id number] PCP - General 07/06/09
--- OUTSIDE RECORDS SUMMARY | 2024-07-28 14:15 | XMS_ITS | CONTINUITY OF CARE DOCUMENT ---
Author Name brionnagudeliabrayden Address Unknown Organization [facility] Address [address] [place] [address] Phone [phone] Care Team Providers Care Percussion Tuner Name Role Phone Tara Thurman MD Unavailable Tara Thurman MD Unavailable INSURANCE PROVIDERS Payer name Policy type / Coverage type [place] Medicaid [id number]
== END 2024-07-28 12:48 | disposition home or self-care (01) ==
LOC: ANHBWCLAB 12:48
PROVIDERS: PCP Nurse Practitioner Adult Health; Visit Provider Nurse Practitioner Adult Health
DX: E06.3 Autoimmune thyroiditis (principal)
CPT/HCPCS: 36415; 84443

== ENCOUNTER 2024-09-10 12:41 | Emergency (ER) | payer OTHER, SELFPAY ==
[2024-09-10 12:45] VITALS: BP 145/83; PULSE 71; RESP 14; TEMP 36.3; O2SAT 98
--- OUTSIDE RECORDS SUMMARY | 2024-09-10 12:47 | XMS_ITS | CONTINUITY OF CARE DOCUMENT ---
Author Name brionnagudeliabrayden Address Unknown Organization [facility] Address [address] [place] [address] [address] [place] [address] Phone [phone] Care Team Providers Care Psychiatry Adult Physician Name Role Phone Tara Thurman MD Unavailable [phone] Tara Thurman MD Unavailable INSURANCE PROVIDERS Payer name Policy type / Coverage type [place] red green party [place] [employer] Medicaid [id number]
--- OUTSIDE RECORDS SUMMARY | 2024-09-10 12:47 | XMS_ITS | CONTINUITY OF CARE DOCUMENT ---
Author Name brionnagudeliabrayden Address Unknown Organization [facility] Office Address [address] [place] [address] [address] [place] [address] Phone [phone] Care Team Providers Care Medical Imaging Technician Name Role Phone Tara Thurman MD Unavailable [phone] Tara Thurman MD Unavailable [phone] INSURANCE PROVIDERS Payer name Policy type / Coverage type [place] red green party [place] [employer] Medicaid [id number]
--- OUTSIDE RECORDS SUMMARY | 2024-09-10 12:47 | XMS_ITS | Clinical Summary ---
Author Organization [facility] Address [address] [place] [address] Care Team Providers Care Rehab Assistant Name Role Phone Josh Ackerman MD Primary Care Provider [phone] Source Comments [facility],non-owned Affiliates and Associated Physician Practices is amultiple site organization consisting of ambulatory clinics and hospital sitesin [place], [place], [place]. This disclosure is being madepursuant to the Care Everywhere program and may not contain all information available regarding this patient. 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 Gender Identity Not on file Sexual Orientation Not on file Plan of Treatment Health Maintenance Due Date Last Done Comments HIV SCREENING 2009 HEPATITIS C SCREENING 05/03/2012 DTAP/TDAP/TD VACCINES (1 - Tdap) 2013 HEPATITIS B VACCINE (1 of 3 - 19+ 3-dose series) 2013 COVID-19 VACCINE ( - 2023-2 5 season) 2024 DEPRESSION SCREENING 05/18/2024 INFLUENZA VACCINE (Season Ended) 2025 ZOSTER VACCINE (1 of 2) 2044 HIB [...] age to complete this topic Care Teams Rehab Assistant Relationship Specialty Start Date End Date Josh Ackerman MD [address] [place], [place] [id number] PCP - General 07/06/09
--- OUTSIDE RECORDS SUMMARY | 2024-09-10 12:47 | XMS_ITS | Clinical Summary ---
Author Organization [facility] Address [address] [place] [address] Phone Care Team Providers Care Tie Tape Machine Operator Name Role Phone Edgar Orourke MD Primary Care Provider [phone] Allergies Active Allergy Reactions Criticality Noted Date [...] (HCV) Screening 1994 Influenza Immunization (#1) 2024 01/0 12/2014, 04/24/2011, 03/24/2005, Additional history exists SARS-COV-2 Immunization ( season) [...] Insurance MEDICAID [employer] Care Teams Tie Tape Machine Operator Relationship Specialty Start Date End Date Edgar Orourke MD [address] [place] [address] PCP - General Family Medicine 05/26/23
--- OUTSIDE RECORDS SUMMARY | 2024-09-10 12:47 | XMS_ITS | Data Portability ---
Author Organization [facility] Address [address] [place] [address] Assessment No assessment recorded. Plan of Treatment Reminders Order Date Submit Date Provider Last Modified By Organization Details Last Modified Time Details Appointments None recorded. Lab CMP, serum or plasma 2014 015 [email or web address] [facility], [address] [place] [address], [address], [place], [address], 5 16:37:20 HbA1c (hemoglobin A1c), blood 2014 015 [facility], [address] [place] [address], [address], [place], [address], 5 16:37:20 lipid panel, serum 2014 015 [email or web address] [facility], [address] [place] [address], [address], [place], [address], 5 16:37:20 TSH, serum or plasma 2014 015 [facility], [address] [place] [address], [address], [place], [address], 5 16:37:21 CBC 2014 015 [email or web address] [facility], [address] [place] [address], [address], [place], [address], 5 16:37:21 Referral physical therapist referral 2015 016 [email or web address] Not available 6 08:01:44 neurologist referral 2015 016 [email or web address] Vincent Amaya MD (Neurology), [address] [place] [address] [place], [address], 6 08:11:56 Procedures None recorded. Surgeries None recorded. Imaging None recorded. Medication Orders cyclobenzap rine 10 mg tablet 2015 016 nsuthan Not available 6 11:08:50 Mobic 15 mg tablet 2014 015 [id number], [address], [place], [id number], 5 09:04:36 loratadine 10 mg tablet 2014 015 [facility][id number], [address], [place], [id number], 5 09:04:36 Flonase 50 mcg/actuati on nasal spray,suspe nsion 2014 015 [id number], [address], [place], [id number], 5 09:04:36 Patient TargetsNo targets recorded. Patient Instructions Encounter Date Encounter Id Patient Instructions Last Modified By Organization Details Last Modified Time 03/14/2015 [id number] Take meds as prescribed Healthy diet/ exercise f/u in 6 month nsuthan Not available 03/14/2015 09:04:37 05/23/2015 [id number] back stretches: exercises nsuthan Not available 05/23/2015 [...] No observ ation record ed. [facility] ([facility]) Scheduling [address] [place], [address], 09/11/2014 14:16:18 10/05/19 15 10/04/2014 x-ray , foot No observ ation record ed. [facility] ([facility]) Scheduling [address] [place], [address], 10/04/2014 12:46:13 03/16/20 15 03/16/2015 x-ray , chest No observ ation record ed. [facility] ([facility]) Scheduling [address] [place], [address], 03/19/2015 13:16:41 Result Notes None recorded. Problems Name Problem SNOMED Code Status Onset Date Resolution Date Notes Provider Name and Address Organization Details Recorded Time Pain of wrist region 87848956 Active Thor Ho MD Attn: Accounting ,[address] [place], [address] , [place] [facility] 5 09:04:36 Allergic rhinitis 83800440 Active Thor Ho MD Attn: Accounting ,[address] [place], [address] , [place] [facility] 5 09:04:36 Morbid obesity 106623624 Active Thor Ho MD Attn: Accounting ,[address] [place], [address] , [place] [facility] 5 09:04:36 Low back pain 725227704 Active Thor Ho MD Attn: Accounting ,[address], [place], [address] , [facility] 6 11:08:50 Seizure 61797845 Active Thor Ho MD Attn: Accounting ,[address], [place], [address] , [facility] 6 11:08:50 Problem Notes None recorded. Procedures Surgical History None recorded. Imaging Results Imaging Date Name Status LastModified by Organiz ation Details LastModified Time 05/29/2014 imaging/diag nostic result completed nsuthan Information not available 05/30/2014 12:57:55 09/09/2014 x-ray, forearm completed nsuthan [facility] ([facility]) Scheduling [address] [place], [address], 09/11/2014 14:16:18 10/04/2014 x-ray, foot completed nsuthan [facility] ([facility]) Scheduling [address] [place], [address], 10/04/2014 12:46:13 03/16/2015 x-ray, chest completed nsuthan [facility] ([facility] Scheduling [address] [place], [address], 03/19/2015 13:16:41 Procedure Notes None recorded. Medical Equipment None Reported. Allergies Allergen ID Allergen Name Allergen Category Reaction Reaction Severity Criticality Documentation Date Start Date Code Code System Note Provider Name and Address Organization Details Recorded Time 60125 penicilli n V Not available Not available [...] Details Last Updated DateTime 5 12 /min 344612. 253992 g 97 % 97 % 175.26 cm 41.8 kg/m2 97.6 [degF] 79 /min 130 mm[Hg] 84 mm[Hg] Clari Arellano MA [facility] 5 08:38:15 Date Recorded Respiratory rate Body height Body temperature Oxygen saturation Oxygen saturation in Arterial blood by Pulse oximetry Body weight Heart rate Body mass index (BMI) Systolic blood pressure Diastolic blood pressure Provider Name and Address Organization Details Last Updated DateTime 6 16 /min 175.26 cm 97.7 [degF] 99 % 99 % 198969. 53158 g 77 /min 42.4 kg/m2 130 mm[Hg] 80 mm[Hg] Clari Arellano MA [facility] 6 10:38:40 Social History Question Answer Notes LastModified by Organizat ion Details LastModified Time Tobacco Smoking Status Never Smoker Clari Arellano MA null, [facility] 03/14/2015 08:41:36 What Is Your Level Of Alcohol Consumption? None [email or web address] Information not available 03/14/2015 Sex: Unknown Functional Status None recorded. Mental Status None recorded. Family History Relationship Description Onset Age of this Age Resolved Age Notes LastModified by Organization Details LastModified Time Mother Diabetes mellitus Not available 2014 11:54:30 Medical History Condition Response Depression Y Allergies Y Immunizations Vaccine Type Date Status Note Provider Nam e and Address Organization Details Recorded Time Influenza, split virus, trivalent, preservative 5 completed Not Available [facility] 06/04/2019 02:47:17 Td (adult) 3 completed Thor Ho MD Attn: Accounting,[address] [facility], [place], [address], [facility] 03/14/2015 08:49:53 Past Encounters Encounter ID Performer Location Encounter Start Date Encounter Closed Date Diagnosis/Indication Diagnosis SNOMED-CT Code Diagnosis ICD10 Code Diagnosis Note [id number] MD Anusha Amaralhalto (Adult Med) [address] [place] [address] 05/25/2014 10:50:05 05/25/2014 16:29:05 Influenza vaccine needed [id number] MD Anusha Amaralhalto (Adult Med) [address] [place] [address] 03/14/2015 08:18:44 03/14/2015 09:14:02 Pain of wrist region 02708851 M25.532 with h/o fx in the past as a child Mobic prn for pain wrist splint Allergic rhinitis 850704 04 J30.2 Morbid obesity 001820073 E66.01 diet and exercise discussed with pt [id number] MD Anusha Amaralhalto (Adult Med) [address] [facility] [place] [address] 05/23/2015 10:31:29 05/24/2015 09:06:01 Low back pain 237111526 M54.5 possibly muscle strain /obesity pt to loose wt Refer to PT Seizure 56710253 G40.89 Refer to neurologis t for EEG [...] Sky Member ID Guarantor Name 05/25/2014 1 [facility] - DOS PRIOR TO 2020 (MEDICAID REPLACEMENT - HMO) Mata Laona [id number] Mata Laona 03/14/2015 1 MEDICAID-[place]: [place] [employer] Mata Manoj [id number] Mata Manoj 05/23/2015 1 [facility] (MEDICAID HMO) Mata Manoj [id number] Mata Laona Notes Date Note Type Note Provider Name [...] done. Thor Ho MD Attn: Accounting,[address] [place], [address], [facility] 05/23/2015 11:09:22
--- OUTSIDE RECORDS SUMMARY | 2024-09-10 12:47 | XMS_ITS ---
Author Organization [facility] Address [address] [place] [address] Phone Care Team Providers Care Police Shift Commander Name Role Phone Edgar Orourke MD Primary Care Provider [phone] [facility] Status:Enrolled (Active) Start date:06/15/2024 Enrollment date:06/15/2024 Related social drivers of health:Intimate Partner Violence, Social Connections, Alcohol Use, Financial Resource Strain, Depression, Stress, Physical Activity, Food Insecurity, Transportation Needs, Housing Stability, Utilities Continued Care and Services Coordination
--- NOTE | 2024-09-10 14:00 | ED.GENADULT ---
HPI - General Adult General Chief complaint: Ear Stated complaint: Left Ear Pain Source: patient Mode of arrival: ambulatory Limitations: no limitations History of Present Illness HPI narrative: Patient presents for evaluation of left-sided ear pain. Symptom onset a few days ago. He has a popping sensation in his ear. He denies any fever, chills, nausea, vomiting, diarrhea, cough, SOB or sore throat. No recent sick contacts to his knowledge. He does vape. Related Data Allergies Allergy/AdvReac Type Severity Reaction Status Date / Time Penicillins Allergy Unknown Rash Verified 09/10/24 12:55 Review of Systems Review of Systems: CONSTITUTIONAL: Denies fever, chills, or sweats. EYES: Denies visual changes, redness, or discharge. ENT: Reports left-sided ear pain with a ?popping? sensation Denies rhinorrhea, congestion, sore throat CARDIOVASCULAR: Denies chest pain, palpitations, or edema. RESPIRATORY: Denies cough or dyspnea. GASTROINTESTINAL: Denies abdominal pain, nausea, vomiting, or diarrhea. GENITOURINARY: Denies dysuria or hematuria. SKIN: Denies rash or itching. MUSCULOSKELETAL: Denies back pain, joint pain, or myalgia. NEUROLOGIC: Denies headache, numbness, dizziness, or weakness. PSYCHIATRIC: Denies anxiety or depression. [facility] Past Medical History Medical History Thyroid disorder Scoliosis Lower back pain Surgical History Surgical History No pertinent past surgical history Family History Family History (Updated 09/10/24 @ 14:02 by LIN Velasquez, ) Mother Family history non-contributory Social History Social History Smoking status: Never smoker Alcohol intake: never Substance use: never Lack of Transportation: YES Lack of Food: Never True Current Housing: I Have Housing Concerned About Future Housing: No Difficulty Paying Gas/Electric Bills: No Difficulty Paying for Meds: No Currently Unemployed: No Education: High School Diploma/GED Difficulty w/ Childcare or Family Care: No Living arrangements: with family Exam Narrative: GENERAL: Well-appearing, well-nourished, and in no acute distress. HEAD: Normocephalic, atraumatic. EYES: PERRLA and EOMI. ENT: Nares clear, no rhinorrhea or epistaxis. Mucous membranes moist. Oropharynx without tonsillar hypertrophy exudate or other lesions. Bilateral TMs are erythematous and bulging. NECK: Supple. No adenopathy or masses. No carotid bruits or JVD CHEST: Clear to auscultation. No respiratory distress. No wheezes rales or rhonchi HEART: Regular rate and rhythm. No murmur heard. Normal peripheral pulses. ABDOMEN: Soft, nontender, nondistended, normal active bowel sounds. EXTREMITIES: Normal range of motion. No edema. SKIN: Warm, dry, no rash. NEURO: No focal deficits. Alert and oriented x3. PSYCH: Normal mood and affect. Course Course Emergency Course: This is a 29-year-old male who presented for evaluation of left-sided ear pain. He has evidence of otitis media bilaterally. He has an allergy to penicillin but can tolerate cefdinir. Will discharge with cefdinir. Follow-up with primary provider. Go to the ER for worsening symptoms. Pt in agreement with plan of care. Level of Care: Express Care Visit Vital Signs Vital signs: Vital Signs Temperature 36.3 C L 09/10/24 12:45 Pulse Rate 71 09/10/24 12:45 Respiratory Rate 14 09/10/24 12:45 Blood Pressure 145/83 H 09/10/24 12:45 Pulse Oximetry 98 09/10/24 12:45 Oxygen Delivery Room Air 09/10/24 12:45 Temperature 36.3 C L 09/10/24 12:45 Pulse Rate 71 09/10/24 12:45 Respiratory Rate 14 09/10/24 12:45 Blood Pressure 145/83 H 09/10/24 12:45 Pulse Oximetry 98 09/10/24 12:45 Oxygen Delivery Room Air 09/10/24 12:45 Medical Decision Making Vital Signs Vital Signs: Vital Signs Temperature 36.3 C L 09/10/24 12:45 Pulse Rate 71 09/10/24 12:45 Respiratory Rate 14 09/10/24 12:45 Blood Pressure 145/83 H 09/10/24 12:45 Pulse Oximetry 98 09/10/24 12:45 Oxygen Delivery Room Air 09/10/24 12:45 Temperature 36.3 C L 09/10/24 12:45 Pulse Rate 71 09/10/24 12:45 Respiratory Rate 14 09/10/24 12:45 Blood Pressure 145/83 H 09/10/24 12:45 Pulse Oximetry 98 09/10/24 12:45 Oxygen Delivery Room Air 09/10/24 12:45 Discharge Plan Discharge Clinical Impression: Bilateral acute otitis media Patient Disposition: Home Condition: Stable Instructions: Antibiotic Form, Ear Infection (GEN) Patient Language: [place] Prescriptions: New cefdinir 300 mg capsule 300 mg PO Q12H Qty: 20 0RF No Action sertraline 50 mg tablet 50 mg PO QHS Qty: 30 3RF losartan-hydrochlorothiazide 50-12.5 mg tablet See Rx Instructions .ROUTE .COMPLEX Qty: 90 3RF Dose Instruction: TAKE 1 TABLET BY MOUTH DAILY Rx Instructions: TAKE 1 TABLET BY MOUTH DAILY levothyroxine 100 mcg tablet See Rx Instructions .ROUTE .COMPLEX Qty: 90 0RF Dose Instruction: TAKE 1 TABLET BY MOUTH DAILY Rx Instructions: TAKE 1 TABLET BY MOUTH DAILY Follow-up/Referrals: Berta Perry APRN [Primary Care Provider] - Time of Disposition: 13:59
== END 2024-09-10 14:04 | disposition home or self-care (01) ==
PROVIDERS: Emergency Provider Nurse Practitioner; PCP Nurse Practitioner Adult Health
DX: H66.93 Otitis media, unspecified, bilateral (principal); M41.9 Scoliosis, unspecified; F17.290 Nicotine dependence, other tobacco product, uncomplicated
CPT/HCPCS: 99213; G0463

== ENCOUNTER 2024-09-14 11:51 | Outpatient (CLI) | payer OTHER, SELFPAY ==
--- OUTSIDE RECORDS SUMMARY | 2024-09-14 13:11 | XMS_ITS | CONTINUITY OF CARE DOCUMENT ---
Author Name brionnagudeliabrayden Address Unknown Organization [facility] Address [address] [place] [address] [address] [place] [address] Phone [phone] Care Team Providers Care Personnel Coordinator Name Role Phone Tara Thurman MD Unavailable [phone] Tara Thurman MD Unavailable INSURANCE PROVIDERS Payer name Policy type / Coverage type [place] red green party [place] Medicaid [id number]
--- OUTSIDE RECORDS SUMMARY | 2024-09-14 13:11 | XMS_ITS | Clinical Summary ---
Author Organization [facility] Address [address] [place] [address] Care Team Providers Care Medical Csr Name Role Phone Josh Ackerman MD Primary Care Provider [phone] [facility],non-owned Affiliates and Associated Physician Practices is amultiple site organization consisting of ambulatory clinics and hospital sitesin [place], [place], [place] and [place]. This disclosure is being madepursuant to the Care Everywhere program and may not contain all information available regarding this patient. Last updated 18.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
--- OUTSIDE RECORDS SUMMARY | 2024-09-14 13:11 | XMS_ITS | Clinical Summary ---
Author Organization [facility] Address [address] [place] [address] Phone Care Team Providers Care Durable Medical Equipment Repairer Name Role Phone Edgar Orourke MD Primary Care Provider [phone] Allergies Active Allergy Reactions Criticality Noted Date [...] Insurance MEDICAID [employer] Care Teams Durable Medical Equipment Repairer Relationship Specialty Start Date End Date Edgar Orourke MD [address] [place] [address] PCP - General Family Medicine 05/26/23
--- OUTSIDE RECORDS SUMMARY | 2024-09-14 13:11 | XMS_ITS ---
Author Organization [facility] Address [address] [place] [address] Phone Care Team Providers Care Rotor Pilot Name Role Phone Edgar Orourke MD Primary Care Provider [phone] [facility] Status:Enrolled (Active) Start date:06/15/2024 Enrollment date:06/15/2024 Related social drivers of health:Intimate Partner Violence, Social Connections, Alcohol Use, Financial Resource Strain, Depression, Stress, Physical Activity, Food Insecurity, Transportation Needs, Housing Stability, Utilities Continued Care and Services Coordination
[2024-09-14 21:37] LABS: LDL Cholesterol Direct 65 mg/dL
[2024-09-14 21:40] LABS: Alanine Aminotransferase 51 U/L (6-50); Albumin Level 4.3 g/dL (3.5-5.1); Alkaline Phosphatase 71 U/L (38-126); Anion Gap 8 mmol/L (4-12); Aspartate Amino Transferase 69 U/L (17-59); Bilirubin,Total 1.1 mg/dL (0.2-1.3); Blood Urea Nitrogen 17 mg/dL (9-20); Calcium 9.1 mg/dL (8.4-10.2); Carbon Dioxide 26 mmol/L (22-30); Chloride 104 mmol/L (98-107); Cholesterol 139 mg/dL (0-200); Estimated Glomerular Filt Rate > 60; Glucose 98 mg/dL (65-110); HDL Direct 38 mg/dL; Potassium 4.1 mmol/L (3.4-5.0); Sodium 138 mmol/L (137-145); Triglycerides 129 mg/dL (<150)
[2024-09-14 22:01] LABS: Hemoglobin A1C 5.1 % (<5.7)
== END 2024-09-14 11:52 | disposition home or self-care (01) ==
LOC: ANHBWCLAB 11:52
PROVIDERS: PCP Nurse Practitioner Adult Health; Visit Provider Nurse Practitioner Adult Health
DX: I10 Essential (primary) hypertension (principal); E66.9 Obesity, unspecified
CPT/HCPCS: 36415; 80053; 80061; 83036; 84443

== ENCOUNTER 2024-11-02 16:46 | Emergency (ER) | payer OTHER, SELFPAY ==
[2024-11-02 16:49] VITALS: BP 156/97; PULSE 73; RESP 16; TEMP 36.2; O2SAT 97
--- NOTE | 2024-11-02 17:24 | ED_ITS ---
HPI - Ear Problem General Chief complaint: Ear Stated complaint: Left Ear Pain Time Seen by Provider: 11/02/24 17:17 Source: patient and RN notes reviewed Mode of arrival: ambulatory Limitations: no limitations History of Present Illness HPI Narrative: Patient presents today complaining of echo Ng and popping to the left ear times 10 days. Believes he has wax in the ear that needs to be removed. Denies pain or muffling. Denies any other upper respiratory symptoms. He has tried to rinse the ear with water while in the shower but no other interventions prior to arrival. Related Data Allergies Allergy/AdvReac Type Severity Reaction Status Date / Time Penicillins Allergy Unknown Rash Verified 09/14/24 11:20 Review of Systems Review of Systems: CONSTITUTIONAL: Denies body aches, fever, chills, or sweats. EYES: Denies visual changes, redness, or discharge. ENT: Denies rhinorrhea, congestion, sore throat, or otalgia.+ left ear popping CARDIOVASCULAR: Denies chest pain, palpitations, or edema. RESPIRATORY: Denies cough or dyspnea. GASTROINTESTINAL: Denies abdominal pain, nausea, vomiting, or diarrhea. GENITOURINARY: Denies dysuria or hematuria. SKIN: Denies rash, itching, or wounds. MUSCULOSKELETAL: Denies back pain, joint pain, or myalgia. NEUROLOGIC: Denies headache, numbness, tingling, or weakness. PSYCH: Denies depression or anxiety. [facility] Past Medical History Medical History Thyroid disorder Scoliosis Lower back pain Surgical History Surgical History No pertinent past surgical history Family History Family History Mother Family history non-contributory Social History Social History Smoking status: Never smoker Alcohol intake: never Substance use: never Lack of Transportation: YES Lack of Food: Never True Current Housing: I Have Housing Concerned About Future Housing: No Difficulty Paying Gas/Electric Bills: No Difficulty Paying for Meds: No Currently Unemployed: No Education: High School Diploma/GED Difficulty w/ Childcare or Family Care: No Living arrangements: with family Comments At time of signature, I have reviewed and agree with nursing past medical, surgical, social and family history unless otherwise noted. Please see nursing chart for further information. There is no relevant family history pertinent to the presenting complaint Exam Narrative: GENERAL: Well-appearing, well-nourished, and in no acute distress. HEAD: Normocephalic, atraumatic. EYES: EOMI. No redness or drainage. Conjunctivae normal. ENT: Mucous membranes pink and moist. Left canal normal without cerumen. Left TM with small amount of clear fluid behind. No evidence of bacterial infection. NECK: Normal AROM. CHEST: No respiratory distress. EXTREMITIES: Normal range of motion. No edema. SKIN: Warm, dry, no rash. Capillary refill normal. Normal skin turgor. NEURO: No focal deficits. Alert and oriented x3. Gait steady. PSYCH: Normal affect. No signs of depression or anxiety. Course Course Level of Care: Express Care Visit Vital Signs Vital signs: Vital Signs Temperature 97.2 F L 11/02/24 16:49 Pulse Rate 73 11/02/24 16:49 Respiratory Rate 16 11/02/24 16:49 Blood Pressure 156/97 H 11/02/24 16:49 Pulse Oximetry 97 11/02/24 16:49 Oxygen Delivery Room Air 11/02/24 16:49 Temperature 97.2 F L 11/02/24 16:49 Pulse Rate 73 11/02/24 16:49 Respiratory Rate 16 11/02/24 16:49 Blood Pressure 156/97 H 11/02/24 16:49 Pulse Oximetry 97 11/02/24 16:49 Oxygen Delivery Room Air 11/02/24 16:49 Reviewed Medical Decision Making MDM Narrative Medical decision making narrative: Patient has left serous otitis. Recommend starting Flonase. No signs of bacterial infection. PCP or ENT follow-up if symptoms persist. Differential Diagnosis Differential Diagnosis: Otitis media, otitis externa, ruptured TM, serous otitis, cerumen impaction Vital Signs Vital Signs: Vital Signs Temperature 97.2 F L 11/02/24 16:49 Pulse Rate 73 11/02/24 16:49 Respiratory Rate 16 11/02/24 16:49 Blood Pressure 156/97 H 11/02/24 16:49 Pulse Oximetry 97 11/02/24 16:49 Oxygen Delivery Room Air 11/02/24 16:49 Temperature 97.2 F L 11/02/24 16:49 Pulse Rate 73 11/02/24 16:49 Respiratory Rate 16 11/02/24 16:49 Blood Pressure 156/97 H 11/02/24 16:49 Pulse Oximetry 97 11/02/24 16:49 Oxygen Delivery Room Air 11/02/24 16:49 Critical Care Time Critical Care Time Critical Care Time: No Discharge Plan Discharge Clinical Impression: Acute serous otitis media of left ear Patient Disposition: Home Condition: Stable Instructions: Fluid In The Ear (Serous Otitis Media) (ED) Additional Instructions: You have some fluid behind your eardrum but no signs of infection or ear wax. Please start some Flonase (fluticasone) and use daily. Follow-up with your PCP or ENT physician in 2 weeks if symptoms persist. Your blood pressure was elevated above 120/80 today at Urgent Care. This puts you above the threshold for follow up. Please schedule a followup visit with your personal physician as soon as possible, for further evaluation and treatment. Even blood pressure exceeding 120/80 may indicate pre-hypertension. Patient Language: Malian Prescriptions: No Action buspirone 10 mg tablet 10 mg PO BID Qty: 60 1RF losartan-hydrochlorothiazide 50-12.5 mg tablet See Rx Instructions .ROUTE .COMPLEX Qty: 90 3RF Dose Instruction: TAKE 1 TABLET BY MOUTH DAILY Rx Instructions: TAKE 1 TABLET BY MOUTH DAILY levothyroxine 100 mcg tablet See Rx Instructions .ROUTE .COMPLEX Qty: 90 0RF Dose Instruction: TAKE 1 TABLET BY MOUTH DAILY Rx Instructions: TAKE 1 TABLET BY MOUTH DAILY Follow-up/Referrals: Berta Perry APRN [Primary Care Provider] - Time of Disposition: 17:28
--- OUTSIDE RECORDS SUMMARY | 2024-11-02 17:46 | XMS_ITS ---
Author Organization [facility] Address [address] [place] [address] Phone Care Team Providers Care Semiconductors Wafer Breaker Name Role Phone Berta Perry APRN Primary Care Provider [phone] [facility] Status:Enrolled (Active) Start date:06/15/2024 Enrollment date:06/15/2024 Related social drivers of health:Intimate Partner Violence, Social Connections, Alcohol Use, Financial Resource Strain, Depression, Stress, Physical Activity, Food Insecurity, Transportation Needs, Housing Stability, Utilities Continued Care and Services Coordination
--- OUTSIDE RECORDS SUMMARY | 2024-11-02 17:46 | XMS_ITS | Clinical Summary ---
Author Organization [facility] Address [address] [place] [address] Phone Care Team Providers Care Channel Layer Name Role Phone Berta Perry Lila SIDDIQI Primary Care Provider [phone] Allergies Active Allergy Reactions Criticality Noted Date Comments Azithromycin Rash 12/31/2015 Penicillins Rash 04/19/2015 Medications ondansetron (Zofran ODT) [...] more severe pain. 30 Tablet 4 Active ketorolac (TORADOL) 10 MG Tablet Take 1 Tablet by mouth every 6 hours as needed for Mild or more severe pain. 20 Tablet 5 Active Active Problems Problem Noted Date Diagnosed Date Strep pharyngitis 06/08/2018 Encounters Date Type Department Care Team Description 09/30/2024 12:55 AM CDT - 09/30/2024 3:28 AM CDT Emergency [facility] Emergency [address] [place] [address] Sly Garrison MD Vomiting and diarrhea Discharge Disposition: Discharged to home or Selfcare 09/29/2024 Travel 09/24/2024 10:31 PM CDT - 09/24/2024 11:03 PM CDT Emergency [facility] Emergency 1 [facility] [place] [address] Izaiah Dunham MD Acute ear pain, bilateral Discharge Disposition: Discharged to home or Selfcare 09/24/2024 Travel from Last 3 Months Immunizations Immunization Administration Dates Next Due TDAP [...] Sign Reading Time Taken Comments Blood Pressure 136/80 09/30/2024 1:00 AM CDT Pulse 84 09/30/2024 2:30 AM CDT Temperature 37.8 C (100 F) 09/30/2024 1:13 AM CDT Respiratory Rate 16 09/29/2024 11:13 PM CDT Oxygen Saturation 98% 09/30/2024 2:30 AM CDT Inhaled Oxygen Concentration - - Weight 138.8 kg (306 lb) 09/29/2024 11:13 PM CDT Height 175.3 cm (5' 9) 09/29/2024 11:13 PM CDT Body Mass Index 45.19 09/29/2024 11:13 PM CDT Plan of Treatment Health Maintenance Due Date Last Done Comments Hepatitis C Virus (HCV) Screening 1994 Human Papillomavirus (HPV) Immunization (1 - Male 3-dose series) 2009 SARS-COV-2 Immunization ( - season) 2024 Influenza Immunization (Season Ended) 2025 05/25/2014, 04/24/2011, 03/24/2005, Additional history exists Td Immunization Every 10 Years (Adults With [...] on patient's age to complete this topic Procedures Procedure Name Priority Date/Time Associated Diagnosis Comments URINALYSIS REFLEX IF INDICATED BY ABNORMAL RESULTS STAT 09/30/2024 1:20 AM CDT CBC WITH AUTO DIFFERENTIAL STAT 09/29/2024 11:22 PM CDT CMP (COMPREHENSIVE METABOLIC PANEL) STAT 09/29/2024 11:22 PM CDT COMPLETE BLOOD COUNT (CBC) WITH DIFF STAT 09/29/2024 11:22 PM CDT RSV,SARS-COV-2,INFLUE NZA A&B BY PCR STAT 09/29/2024 11:18 PM CDT from Last 3 Months Results * (ABNORMAL) URINALYSIS REFLEX IF INDICATED BY ABNORMAL RESULTS (09/30/2024 1:20 AM CDT) SPECIFIC GRAVITY 1.025 1.003 - 1.030 09/30/2024 2:01 AM CDT [facility] URINE PH 6.0 5.0 - 9.0 09/30/2024 2:01 AM CDT [facility] WBC ESTERASE Negative Negative 09/30/2024 2:01 AM CDT [facility] NITRITE Negative Negative 09/30/2024 2:01 AM CDT [facility] PROTEIN, RANDOM URINE 15 mg/dL(A) Negative 09/30/2024 2:01 AM CDT [facility] URINE GLUCOSE, QUAL Negative Negative 09/30/2024 2:01 AM CDT [facility] URINE KETONES Negative Negative 09/30/2024 2:01 AM CDT [facility] UROBILINOGEN Normal Normal mg/dL 09/30/2024 2:01 AM CDT [facility] URINE BLOOD 25 /uL(A) Negative bernardino/ul 09/30/2024 2:01 AM CDT [facility] URINALYSIS COLOR Yellow 10/01/19 2:01 AM CDT [facility] URINALYSIS CLARITY Clear 09/30/2024 2:01 AM CDT [facility] WBC (Urine) 0-5 Negative, 0-5 /hpf 09/30/2024 2:01 AM CDT [facility] URINE RBC'S 3-5(A) Negative, 0-2 /hpf 09/30/2024 2:01 AM CDT [facility] EPITHELIAL CELLS Negative /lpf 10/01/19 2:01 AM CDT [facility] BACTERIA, URINE Negative Negative /hpf 09/30/2024 2:01 AM CDT [facility] Urine URINE SPECIMEN OBTAINED BY CLEAN CATCH PROCEDURE / Unknown Non-Phlebotomy Collection / Unknown 09/30/2024 1:20 AM CDT 09/30/2024 1:38 AM CDT us Sly Garrison MD URINE ORDERABLES Final Re sult [facility] [address] [place] [address] * (ABNORMAL) CBC with Auto Differential (09/29/2024 11:22 PM CDT) WBC 9.46 4.00 - 12.00 10(3)/mcL 09/30/2024 12:41 AM CDT [facility] RBC 5.16 4.40 - 5.80 10(6)/mcL 09/30/2024 12:41 AM CDT [facility] HEMOGLOBIN (HGB) 15.2 13.0 - 16.5 g/dL 09/30/2024 12:41 AM T [facility] HEMATOCRIT (HCT) 43.8 38.0 - 50.0 % 09/30/2024 12:41 AM CDT [facility] MCV 84.9 82.0 - 96.0 fL 09/30/2024 12:41 AM CDT [facility] MCH 29.5 26.0 - 32.0 pg 09/30/2024 12:41 AM CDT [facility] MCHC 34.7 31.0 - 36.0 g/dL 09/30/2024 12:41 AM [facility] PLATELET COUNT 307 140 - 440 10(3)/mcL 09/30/2024 12:41 AM CDT [facility] RDW 12.2 11.8 - 15.5 % 09/30/2024 12:41 AM [facility] MPV 10.0 8.0 - 12.6 fL 09/30/2024 12:41 AM T [facility] NEUTROPHILS 73.3(H) 40.0 - 68.0 % 09/30/2024 12:41 AM T [facility] LYMPHOCYTES 16.6(L) 19.0 - 49.0 % 09/30/2024 12:41 AM CDT [facility] MONOCYTES 7.7 3.0 - 13.0 % 09/30/2024 12:41 AM CDT [facility] EOSINOPHILS 1.9 0.0 - 8.0 % 09/30/2024 12:41 AM CDT [facility] BASOPHILS 0.5 0.0 - 1.0 % 09/30/2024 12:41 AM CDT [facility] ABSOLUTE NEUTROPHILS 6.93(H) 1.40 - 5.30 10(3)/mcL 09/30/2024 12:41 AM CDT [facility] ABSOLUTE LYMPHOCYTES 1.57 0.90 - 3.30 10(3)/[facility] 09/30/2024 12:41 AM CDT [facility] ABSOLUTE MONOCYTES 0.73 0.10 - 0.90 10(3)/[facility] 09/30/2024 12:41 AM CDT [facility] ABSOLUTE EOSINOPHIL 0.18 0.00 - 0.50 10(3)/[facility] 09/30/2024 12:41 AM CDT [facility] ABSOLUTE BASOPHILS 0.05 0.00 - 0.10 10(3)/[facility] 09/30/2024 12:41 AM CDT [facility] NRBC PER 100 WBC 0 10/01/19 12:41 AM CDT [facility] Blood Venipuncture / Unknown 09/29/2024 11:22 PM CDT 09/30/2024 12:37 AM CDT us Sly Garrison MD HEMATOLOGY ORDERABLES Fin al Result [facility] [address] [place] [address] * (ABNORMAL) Comprehensive Metabolic Panel (Cmp) [id number] (09/29/2024 11:22 PM CDT) SODIUM 137 136 - 145 mmol/L 09/30/2024 1:04 AM CDT [facility] POTASSIUM 3.1(L) 3.5 - 5.1 mmol/L 09/30/2024 1:04 AM CDT [facility] CHLORIDE 106 98 - 107 mmol/L 09/30/2024 1:04 AM CDT [facility] CO2, VENOUS 19(L) 22 - 30 mmol/L 09/30/2024 1:04 AM CDT [facility] ANION GAP 15.1 <18.0 mmol/L 09/30/2024 1:04 AM [facility] GLUCOSE 105(H) 70 - 99 mg/dL 09/30/2024 1:04 AM [facility] BUN 16 9 - 21 mg/dL 09/30/2024 1:04 AM [facility] CREATININE, BLOOD 1.08 0.70 - 1.30 mg/dL 09/30/2024 1:04 AM [facility] BUN/CREATININE RATIO 15 12 - 20 ratio 09/30/2024 1:04 AM [facility] TOTAL PROTEIN 7.8 6.0 - 8.0 g/dL 09/30/2024 1:04 AM [facility] ALBUMIN 4.2 3.5 - 5.0 g/dL 09/30/2024 1:04 AM [facility] A/G RATIO 1.2 1.0 - 2.2 09/30/2024 1:04 AM [facility] CALCIUM 8.9 8.7 - 10.5 mg/dL 09/30/2024 1:04 AM [facility] T BILI 1.0 0.2 - 1.2 mg/dL 09/30/2024 1:04 AM [facility] SGOT (AST) 39 <43 U/L 09/30/2024 1:04 AM [facility] SGPT (ALT) 51 <56 U/L 09/30/2024 1:04 AM [facility] ALKALINE PHOSPHATASE 79 40 - 150 U/L 09/30/2024 1:04 AM [facility] GFR, ESTIMATED >60 >=60 09/30/2024 1:04 AM [facility] Comment: Creatinine Clearance is the preferred criteria for selecting drug dose adjustments in renally impaired patients. The GFR is provided as additional pertinent clinical information. GFR is reported in mL/min/1.73 sq m. Calculation based on the Chronic Kidney Disease Epidemiology Collaboration (CKD- EPI) equation refit without adjustment for race. GFR, EST. >60 >=60 025 1:04 AM CDT [facility] GFR, EST. NONAFRICAN >60 >=60 09/30/2024 1:04 AM CDT [facility] Blood Venipuncture / Unknown 09/29/2024 11:22 PM CDT 09/30/2024 12:37 AM CDT Sly Garrison MD CHEMISTRY ORDERABLES Lauryn l Result [facility] [address] [place] [address] * RSV,SARS-COV-2,INFLUENZA A&B BY PCR (09/29/2024 11:18 PM CDT) FLU A Negative Negative, Error 09/30/2024 1:16 AM CDT [facility] FLU B Negative Negative 09/30/2024 1:16 AM CDT [facility] RESP SYNC VIRUS Negative Negative 1:16 AM CDT [facility] SARSCOV2 NOT DETECTED (Reference Range for this test is Not Detected) 09/30/2024 1:16 AM CDT [facility] Comment:This test was perfor med by a Reverse Healthcare Technician PCR Method. Swab NASOPHARYNGEAL STRUCTURE / Unknown Non-Phlebotomy Collection / Unknown 09/29/2024 11:18 PM CDT 09/30/2024 12:37 AM CDT Sly Garrison MD MICROBIOLOGY - GENERAL OR DERABLES Final Result [facility] [address] [place] [address] from Last 3 Months Insurance MEDICAID [employer] Care Teams Channel Layer Relationship Specialty Start Date End Date Berta Perry APRN [address] [place] [id number] PCP - General Advanced Practice Nurse 09/30/24
--- OUTSIDE RECORDS SUMMARY | 2024-11-02 17:46 | XMS_ITS | Clinical Summary ---
Author Organization [facility] Address [address] [place] [address] Care Team Providers Care Manager Of Pharmacy Name Role Phone Josh Ackerman MD Primary Care Provider [phone] Source Comments [facility],non-owned Affiliates and Associated Physician Practices is amultiple site organization consisting of ambulatory clinics and hospital sitesin [place], [place], [place] and [place]. This disclosure is being madepursuant to the Care Everywhere program and may not contain all information available regarding this patient. 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
--- OUTSIDE RECORDS SUMMARY | 2024-11-02 17:47 | XMS_ITS | Data Portability ---
Author Organization [facility] Address [address] [place] [address] Assessment No assessment recorded. Plan of Treatment Reminders Order Date Submit Date Provider Last Modified By Organization Details Last Modified Time Details Appointments None recorded. Lab CMP, serum or plasma 2014 015 [email or web address] [facility], [address] [place], [place] [address], [address], [place], [address], 5 16:37:20 HbA1c (hemoglobin A1c), blood 2014 015 [email or web address] [facility], [address] [place] [address], [address], [place], [address], 5 16:37:20 lipid panel, serum 2014 015 [facility], [address] [place] [address], [address], [place], [address], 5 16:37:20 TSH, serum or plasma 2014 015 [email or web address] [facility], [address] [place] [address], [address], [place], [address], 5 16:37:21 CBC 2014 015 [email or web address] [facility], [address] [place] [address], [address], [place], [address], 5 16:37:21 Referral physical therapist referral 2015 016 [email or web address] Not available 6 08:01:44 neurologist referral 2015 016 [email or web address] Vincent Amaya MD (Neurology), [address] [place] [address] [place], [address], 6 08:11:56 Procedures None recorded. Surgeries None recorded. Imaging None recorded. Medication Orders cyclobenzap rine 10 mg tablet 2015 016 nsuthan Not available 6 11:08:50 Mobic 15 mg tablet 2014 015 [id number], [address] [place], [place], [id number], 5 09:04:36 loratadine 10 mg tablet 2014 015 [id number], [address] [place], [place], [id number], 5 09:04:36 Flonase 50 mcg/actuati on nasal spray,suspe nsion 2014 015 [id number], [address] [place], [place], [id number], 5 09:04:36 Patient TargetsNo targets recorded. Patient Instructions Encounter Date Encounter Id Patient Instructions Last Modified By Organization Details Last Modified Time 03/14/2015 [id number] Take meds as prescribed Healthy diet/ exercise f/u in 6 month nsuthan Not available 03/14/2015 09:04:37 05/23/2015 [id number] back stretches: exercises nsuthan Not available 05/23/2015 [...] No observ ation record ed. [facility] Scheduling [address] [place], [address], 09/11/2014 14:16:18 10/05/19 15 10/04/2014 x-ray , foot No observ ation record ed. [facility] Scheduling [address] [place], [address], 10/04/2014 12:46:13 03/16/20 15 03/16/2015 x-ray , chest No observ ation record ed. [facility] Scheduling [address] [place], [address], 03/19/2015 13:16:41 Result Notes None recorded. Problems Name Problem SNOMED Code Status Onset Date Resolution Date Notes Provider Name and Address Organization Details Recorded Time Pain of wrist region 55708021 Active Thor Ho MD Attn: Accounting ,[address] [place], [address] , [place] [facility] 5 09:04:36 Allergic rhinitis 92638938 Active Thor Ho MD Attn: Accounting ,[address] [place], [address] , [place] [facility] 5 09:04:36 Morbid obesity 199174560 Active Thor Ho MD Attn: Accounting ,[address] [place], [address] , [place] [facility] 5 09:04:36 Low back pain 116398662 Active Thor Ho MD Attn: Accounting ,[address], [place], [address] , [facility] 6 11:08:50 Seizure 04788588 Active Thor Ho MD Attn: Accounting ,[address], [place], [address] , [facility] 6 11:08:50 Problem Notes None recorded. Medical Equipment None Reported. Allergies Allergen ID Allergen Name Allergen Category Reaction Reaction Severity Criticality Documentation Date Start Date Code Code System Note Provider Name and Address Organization Details Recorded Time penicilli n V Not available Not available Not available Not available 05/25/2014 7984 RxNorm Norma Alvarado MA [facility], [facility] 5 11:52:14 Medications Name Sig Start Date Stop Date [...] Available Vitals Date Recorded Respiratory rate Body height Body temperature Oxygen saturation Oxygen saturation in Arterial blood by Pulse oximetry Body weight Heart rate Body mass index (BMI) Systolic blood pressure Diastolic blood pressure Provider Name and Address Organization Details Last Updated DateTime 6 16 /min 175.26 cm 97.7 [degF] 99 % 99 % 328961. 28200 g 77 /min 42.4 kg/m2 130 mm[Hg] 80 mm[Hg] Clari Arellano MA [facility] 6 10:38:40 Date Recorded Respiratory rate Body weight Oxygen saturation Oxygen saturation in Arterial blood by Pulse oximetry Body height Body mass index (BMI) Body temperature Heart rate Systolic blood pressure Diastolic blood pressure Provider Name and Address Organization Details Last Updated DateTime 5 12 /min 213426. 789016 g 97 % 97 % 175.26 cm 41.8 kg/m2 97.6 [degF] 79 /min 130 mm[Hg] 84 mm[Hg] Clari Arellano MA [facility] 5 08:38:15 Social History None recorded. Functional Status Question Answer Note LastModified by Organization D etails LastModified Time What is your level of alcohol consumption? None [email or web address] Information not available 03/14/2015 Mental Status None recorded. Family History Relationship Description Onset Age of this Age Resolved Age Notes LastModified by Organization Details LastModified Time Mother Diabetes mellitus [email or web address] Not available 2014 11:54:30 Medical History Condition Response Depression Y Allergies Y Immunizations Vaccine Type Date Status Note Provider Nam e and Address Organization Details Recorded Time Influenza, split virus, trivalent, preservative 5 completed Not Available [employer] 06/04/2019 02:47:17 Td (adult) 3 completed Thor Ho MD Attn: Accounting,[address] [facility], [place], [address], [facility] 03/14/2015 08:49:53 Past Encounters Encounter ID Performer Location Encounter Start Date Encounter Closed Date Diagnosis/Indication Diagnosis SNOMED-CT Code Diagnosis ICD10 Code Diagnosis Note [id number] Thor Ho MD [facility] (Adult Med) [address] [place] [address] 05/25/2014 10:50:05 05/25/2014 16:29:05 Influenza vaccine needed [id number] MD Lynette Amaral (Adult Med) [address] [place] [address] 03/14/2015 08:18:44 03/14/2015 09:14:02 Pain of wrist region 06029589 M25.532 with h/o fx in the past as a child Mobic prn for pain wrist splint Allergic rhinitis 327441 04 J30.2 Morbid obesity 765419848 E66.01 diet and exercise discussed with pt [id number] MD Lynette Amaral (Adult Med) [address] [place] [address] 05/23/2015 10:31:29 05/24/2015 09:06:01 Low back pain 397596307 M54.5 possibly muscle strain /obesity pt to loose wt Refer to PT Seizure 19076241 G40.89 Refer to neurologis t for EEG and further evaluation Advised pt not to drive for now Health Concerns Section Related Observation LastModified by Organization Detai ls LastModified Time None Recorded Concern Status LastModified by Organization Details LastModified Time None Recorded Advance Directives Directive None Recorded Payers Insurance Date Sequence Insurance Name Policy Number Policy Sky Covered Member ID Sky Member ID Guarantor Name 01/23/2015 1 [facility] - DOS PRIOR TO 2020 (MEDICAID REPLACEMENT - HMO) [place] [id number] Amta Manoj 05/21/2015 1 [place] [id number] [place] 09/10/2015 1 [facility] (MEDICAID HMO) [place] [id number] [place] Notes Date Note Type Note Provider Name [...] done. Thor Ho MD Attn: Accounting,[address] [place], [address], [facility] 05/23/2015 11:09:22
--- OUTSIDE RECORDS SUMMARY | 2024-11-02 17:47 | XMS_ITS | CONTINUITY OF CARE DOCUMENT ---
Author Name brionnagudeliabrayden Address Unknown Organization [facility] Address [address] [place] [address] Phone [phone] Care Team Providers Care Creel Cleaner Name Role Phone Tara Thurman MD Unavailable [phone] Tara Thurman MD Unavailable [phone] INSURANCE PROVIDERS Payer name Policy type / Coverage type [place] [employer] [place] Medicaid [id number]
--- OUTSIDE RECORDS SUMMARY | 2024-11-02 17:47 | XMS_ITS | CONTINUITY OF CARE DOCUMENT ---
Author Name brionnagudeliabrayden Address Unknown Organization [facility] Address [address] [place] [address] Phone [phone] Care Team Providers Care Leather Case Finisher Name Role Phone Tara Thurman MD Unavailable Tara Thurman MD Unavailable [phone] INSURANCE PROVIDERS Payer name Policy type / Coverage type [place] [employer] [place] Medicaid [id number]
== END 2024-11-02 17:33 | disposition home or self-care (01) ==
PROVIDERS: Emergency Provider Nurse Practitioner; PCP Nurse Practitioner Adult Health
DX: H65.02 Acute serous otitis media, left ear (principal); M41.9 Scoliosis, unspecified
CPT/HCPCS: 99211; G0463

== ENCOUNTER 2025-02-28 12:23 | Outpatient (CLI) | payer OTHER, SELFPAY ==
--- OUTSIDE RECORDS SUMMARY | 2025-02-28 14:03 | XMS_ITS | Clinical Summary ---
Author Organization [facility] Address [address] [place] [address] Care Team Providers Care Ep Specialist Name Role Phone Josh Ackerman MD Primary Care Provider [phone] Source Comments [facility],non-owned Affiliates and Associated Physician Practices is amultiple site organization consisting of ambulatory clinics and hospital sitesin [place], [place] and [place]. This disclosure is being madepursuant to the Care Everywhere program and may not contain all information available regarding this patient. 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 Gender Identity Not on file Sexual Orientation Not on file Plan of Treatment Health Maintenance Due Date Last Done Comments HIV SCREENING 2009 HEPATITIS C SCREENING 05/03/2012 DTAP/TDAP/TD VACCINES (1 - Tdap) 2013 HEPATITIS B VACCINE (1 of 3 - 19+ 3-dose series) 2013 HPV VACCINE (1 - 3-dose SCDM series) 2021 DEPRESSION SCREENING 05/18/2024 COVID-19 VACCINE ( - 2023-2 5 season) 2025 INFLUENZA VACCINE (#1) 2025 ZOSTER VACCINE (1 of 2) 2044 [...] age to complete this topic Care Teams Ep Specialist Relationship Specialty Start Date End Date Josh Ackerman MD [address] [place], [place] [id number] PCP - General 07/06/09
--- OUTSIDE RECORDS SUMMARY | 2025-02-28 14:03 | XMS_ITS ---
Author Organization [facility] Address [address] [place] [address] Phone Care Team Providers Care Fire Protection Equipment Technician Name Role Phone Berta Perry APRN Primary Care Provider [phone] [facility] Status:Enrolled (Active) Start date:06/15/2024 Enrollment date:06/15/2024 Related social drivers of health:Intimate Partner Violence, Social Connections, Alcohol Use, Financial Resource Strain, Depression, Stress, Physical Activity, Food Insecurity, Transportation Needs, Housing Stability, Utilities Continued Care and Services Coordination
--- OUTSIDE RECORDS SUMMARY | 2025-02-28 14:03 | XMS_ITS | Clinical Summary ---
Author Organization [facility] Address [address] [place] [address] Phone Care Team Providers Care Vehicle Refinisher Name Role Phone Berta Perry Lila SIDDIQI Primary Care Provider [phone] Allergies Active Allergy Reactions Criticality Noted Date [...] 1994 Human Papillomavirus (HPV) Immunization (1 - 3-dose SCDM series) 2021 Influenza Immunization (#1) 01/16/2025/0 12/2014, 04/24/2011, 03/24/2005, Additional history exists SARS-COV-2 Immunization ( season) 2025 Td Immunization Every 10 Years (Adults With [...] Insurance MEDICAID [employer] Care Teams Vehicle Refinisher Relationship Specialty Start Date End Date Berta Perry APRN [address] [place] [address] PCP - General Advanced Practice Nurse 09/30/24
[2025-02-28 19:38] LABS: Thyroid Stimulating Hormone 3.800 uIU/mL (0.465-4.680)
== END 2025-02-28 12:24 | disposition home or self-care (01) ==
LOC: ANHBWCLAB 12:24
PROVIDERS: PCP Nurse Practitioner Adult Health; Visit Provider Nurse Practitioner Adult Health
DX: E07.9 Disorder of thyroid, unspecified (principal)
CPT/HCPCS: 36415; 84443

== ENCOUNTER 2025-03-31 11:33 | Emergency (ER) | payer OTHER, SELFPAY ==
[2025-03-31 11:37] VITALS: BP 152/98; PULSE 80; RESP 20; TEMP 36.6; O2SAT 98
--- NOTE | 2025-03-31 12:15 | ED_ITS ---
HPI - Eye Problem General Chief complaint: Eye Problems Stated complaint: right Eye Problem Time Seen by Provider: 03/31/25 12:00 Source: patient, RN notes reviewed and old records reviewed Mode of arrival: ambulatory Limitations: no limitations History of Present Illness HPI Narrative: 29 [facility] of redness and irritation of his right eye. Patient states that he thought he had a hair in his right eye last night and awoke this morning with some redness of his eye and watering. He states that he did have crusting to his lashes this morning and has noted some mucous discharge. Patient reports no visuall deficit with visual acuity 20/40 bilateral eyes without correction. Patient does have some slight reness under his right eye with no orbital cellulitis noted. Patient denies any trauma to hi right eye. MD chief complaint: eye redness Onset (ago): hour(s) (this morning) Onset description: awoke with symptoms Eye Symptoms: burning, redness, discharge (and crusting to lashes this morning) and other (tearing) Severity scale (1-10): 7 If Pain, Quality: burning Related Data Allergies Allergy/AdvReac Type Severity Reaction Status Date / Time Penicillins Allergy Unknown Rash Verified 03/31/25 11:44 Review of Systems Review of Systems: CONSTITUTIONAL: Denies fever, chills, or sweats. EYES: Denies visual changes. Reports redness,, irritation, discharge increased tearing and burning of right eye. ENT: Denies rhinorrhea, congestion, sore throat, or otalgia. CARDIOVASCULAR: Denies chest pain, palpitations, or edema. RESPIRATORY: Denies cough or dyspnea. SKIN: Denies rash or itching. NEUROLOGIC: Denies headache All systems reviewed & are unremarkable except as noted in HPI and below [facility] Past Medical History Medical History (Updated 04/01/25 @ 20:46 by Gianna Hernandez APRN) Obesity Hypertension Ear infection Anxiety Thyroid disorder Scoliosis Lower back pain Surgical History Surgical History No pertinent past surgical history Family History Family History Mother Family history non-contributory Social History Social History (Reviewed 04/01/25 @ 20:39 by TRICIA [place] Smoking status: Never smoker Alcohol intake: never Substance use: never Lack of Transportation: YES Lack of Food: Never True Current Housing: I Have Housing Concerned About Future Housing: No Difficulty Paying Gas/Electric Bills: No Difficulty Paying for Meds: No Currently Unemployed: No Education: High School Diploma/GED Difficulty w/ Childcare or Family Care: No Living arrangements: with family Comments At time of signature, agree with nursing past medical, surgical, social and family history. There is no relevant family history pertinent to the presenting complaint Exam Narrative: GENERAL: Well-appearing, well-nourished, and in no acute distress. HEAD: Normocephalic, atraumatic. EYES: PERRLA and EOMI. Upper and lower eyelids unremarkable. No periorbital cellulitis noted. Sclera and conjunctivae injected right eye with tearing and burning reports crusting and mucous drainage this am from right eye, small amount of redness under right eye, no visual deficit no sharp pain. ENT: Nares clear, no rhinorrhea or epistaxis. Mucous membranes moist. NECK: Supple.no lymphadenopathy CHEST: Clear to auscultation. No respiratory distress.SAO2 98%on room air HEART: Regular rate and rhythm. No murmur heard. Normal peripheral pulses. SKIN: Warm, dry, no rash. NEURO: No focal deficits. Alert and oriented x3. Course Course Emergency Course: Patient is aware of diagnosis, understands and agrees to treatment plan. Anti cipatory guidance given. Patient agrees to follow-up as directed and is aware of reasons to seek care at the emergency department. Portions of this record may have been created with voice recognition software Level of Care: Express Care Visit Vital Signs Vital signs: Vital Signs Temperature 36.6 C 03/31/25 11:37 Pulse Rate 80 03/31/25 11:37 Respiratory Rate 20 03/31/25 11:37 Blood Pressure 152/98 H 03/31/25 11:37 Pulse Oximetry 98 03/31/25 11:37 Oxygen Delivery Room Air 03/31/25 11:37 Temperature 36.6 C 03/31/25 11:37 Pulse Rate 80 03/31/25 11:37 Respiratory Rate 20 03/31/25 11:37 Blood Pressure 152/98 H 03/31/25 11:37 Pulse Oximetry 98 03/31/25 11:37 Oxygen Delivery Room Air 03/31/25 11:37 Reviewed MDM - Eye Problem MDM Narrative Medical decision making narrative: Consideration of the following conditions may be warranted for the presenting problem, they are not final diagnoses: Bacterial conjunctivitis, allergic conjunctivitis, viral conjunctivitis, foreign body, blepharitis, chalazion, hordeolum, corneal abrasion.? Exam findings show no acute concerns or changes; patient is non-toxic appearing and is in no distress.? Patient is appropriate for outpatient treatment and follow-up. Differential Diagnosis Differential diagnosis: Likely conjunctivitis, subconjunctival hemorrhage and other (mucous discharge) Medical Records Attestation: I reviewed the patient's medical records. Critical Care Time Critical Care Time Critical Care Time: No Discharge Plan Discharge Clinical Impression: Acute conjunctivitis of right eye Qualifiers: Acute conjunctivitis type: unspecified Qualified Code(s): H10.31 - Unspecified acute conjunctivitis, right eye Patient Disposition: Home Condition: Stable Instructions: Antibiotic Form, Conjunctivitis (ED) Additional Instructions: Cold compresses to the eyes for comfort May need warm compresses to remove debris in the morning When cleaning the eyes used a washcloth in one direction then change washcloths or use a cotton ball in one direction and then his cotton balls Eyedrops as directed--may be more soothing if left in the refrigerator Do not share medicine--do not touch the eye with the medicine Tylenol or ibuprofen for pain Avoid screen time--television, computer, tablet or phone. Also no reading or driving Follow-up with PCP or aboriginal education worker coordinator as directed if no improvement in 48 hours If your symptoms persist, change or worsen significantly before you can contact your personal physician then please, without delay, go to the emergency department for further evaluation. Follow-up with PCP in 7-10 days or sooner if needed Follow up with PCP soon in regards to your blood pressure which is elevated above threshold for referral. Blood pressure above 120/80 may indicate pre- hypertension. 152/98 make sure too wash hands well before ever touching eye Patient Language: [place] Prescriptions: New ofloxacin 0.3 % drops See Rx Instructions .ROUTE .COMPLEX Qty: 10 0RF Rx Instructions: put 1-2 drps into affected eye(s) every 2-4 h x 2 days, then 1-2 drps 4 times/day days 3-7 No Action losartan-hydrochlorothiazide 50-12.5 mg tablet See Rx Instructions .ROUTE .COMPLEX Qty: 90 3RF Dose Instruction: TAKE 1 TABLET BY MOUTH DAILY Rx Instructions: TAKE 1 TABLET BY MOUTH DAILY buspirone 10 mg tablet See Rx Instructions .ROUTE .COMPLEX Qty: 60 3RF Dose Instruction: TAKE 1 TABLET BY MOUTH TWICE DAILY Rx Instructions: TAKE 1 TABLET BY MOUTH TWICE DAILY levothyroxine 112 mcg tablet See Rx Instructions .ROUTE .COMPLEX Qty: 90 0RF Dose Instruction: TAKE 1 TABLET BY MOUTH DAILY Rx Instructions: TAKE 1 TABLET BY MOUTH DAILY methylprednisolone [Medrol (Ronni)] 4 mg tablets,dose pack See Rx Instructions PO PER PKG DIR Qty: 21 0RF Rx Instructions: PO PER PKG DIR Follow-up/Referrals: Berta Perry APRN [Primary Care Provider, Family Practice] Stand Alone Forms: Work/School Release IP Time of Disposition: 12:28 Quality [place] Coma Scale Eyes: Open Verbal: Oriented and Alert Motor: Follows Commands [place] Coma Total Score: 15
--- OUTSIDE RECORDS SUMMARY | 2025-03-31 16:26 | XMS_ITS ---
Author Organization [facility] Address [address] [place] [address] Phone Care Team Providers Care Labor And Employment Paralegal Name Role Phone Berta Perry APRN Primary Care Provider [phone]- [phone] [facility] Status:Enrolled (Active) Start date:06/15/2024 Enrollment date:06/15/2024 Related social drivers of health:Intimate Partner Violence, Social Connections, Alcohol Use, Financial Resource Strain, Depression, Stress, Physical Activity, Food Insecurity, Transportation Needs, Housing Stability, Utilities Continued Care and Services Coordination
--- OUTSIDE RECORDS SUMMARY | 2025-03-31 16:26 | XMS_ITS | Clinical Summary ---
Author Organization [facility] Address [address] [place] [address] Phone Care Team Providers Care Nursing Scheduler Name Role Phone Berta Perry APRN Primary Care Provider [phone]- [phone] Allergies Active Allergy Reactions Criticality Noted Date [...] Encounters Date Type Department Care Team Description 03/22/2025 10:00 AM CONTENT DEVELOPMENT SPECIALIST [facility] [address] [place] [address] Berta Perry APRN Anesthesia of skin Discharge Disposition: Discharged to home or Selfcare 03/22/2025 Travel 03/20/2025 Travel 03/16/2025 Transcribe Orders [facility] Scheduling [address] [place] [facility] [place] [address] Berta Perry APRN Anesthesia of skin (Primary Dx) from Last 3 Months Immunizations Immunization Administration [...] series) 2021 Influenza Immunization (#1) 01/16/2025/0 12/2014, 03/01/2012, 04/24/2011, Additional history exists SARS-COV-2 Immunization ( season) [...] Procedure Name Priority Date/Time Associated Diagnosis Comments EMG Routine 03/22/2025 12:00 AM CONTENT DEVELOPMENT SPECIALIST Anesthesia of skin from Last 3 Months Results * EMG (03/22/2025 12:00 AM CONTENT DEVELOPMENT SPECIALIST) 03/22/2025 Narrative SCAN - 03/22/2025 12:00 AM CONTENT DEVELOPMENT SPECIALIST Jerod Augustine MD 03/23/2025 3:43 PM Electromyogram Procedure Note Date of Procedure: 03/22/2025 Pre-operative Diagnosis: right upper extremity numbness, tingling and pain. Post-operative Diagnosis: Indications: Diagnostic Procedure Details Motor Nerve Conduction Studies: The right median motor nerve shows prolonged distal motor latency, decreased motor amplitude and decreased conduction velocity. The right ulnar motor nerve shows normal distal motor latency, normal motor amplitude and normal conduction velocity. Sensory Nerve Conduction Studies: The right radial sensory nerve shows normal sensory nerve peak latency and normal sensory amplitude. Median ulnar comparisons were prolonged, on the right. Median radial comparisons were prolonged, on the right. The right median sensory nerve shows prolonged sensory nerve peak latency and decreased sensory amplitude. The right ulnar sensory nerve shows normal sensory nerve peak latency and normal sensory amplitude. F waves: F wave latency for the right median nerve was prolonged. F wave latency for the right ulnar nerve was normal. 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 Clinical correlation is recommended. Berta Perry APRN NEUROLOGY ORDERABLES V2 Fi nal Result SCAN from Last 3 Months Insurance [employer]ICAID [employer] Care Teams Nursing Scheduler Relationship Specialty Start Date End Date Berta Perry APRN [address] [place] [address] PCP - General Advanced Practice Nurse 09/30/24
--- OUTSIDE RECORDS SUMMARY | 2025-03-31 16:26 | XMS_ITS | Clinical Summary ---
Author Organization [facility] Address [address] [place] [address] Care Team Providers Care Jackspooler Name Role Phone Josh Ackerman MD Primary Care Provider [phone] Source Comments [facility],non-owned Affiliates and Associated Physician Practices is amultiple site organization consisting of ambulatory clinics and hospital sitesin [place], [place], [place] and [place]. This disclosure is being madepursuant to the Care Everywhere program and may not contain all information available regarding this patient. 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 Gender Identity Not on file Sexual Orientation Not on file Plan of Treatment Health Maintenance Due Date Last Done Comments HIV SCREENING 2009 HEPATITIS C SCREENING 05/03/2012 DTAP/TDAP/TD VACCINES (1 - Tdap) 2013 HEPATITIS B VACCINE (1 of 3 - 19+ 3-dose series) 2013 HPV VACCINE (1 - 3-dose SCDM series) 2021 DEPRESSION SCREENING 05/18/2024 COVID-19 VACCINE (1 - 2024-2 6 season) 2025 INFLUENZA VACCINE (#1) 2025 ZOSTER [...] age to complete this topic Care Teams Jackspooler Relationship Specialty Start Date End Date Josh Ackerman MD [address] [place], [place] [id number] PCP - General 07/06/09
== END 2025-03-31 12:33 | disposition home or self-care (01) ==
PROVIDERS: Emergency Provider Registered Nurse; PCP Nurse Practitioner Adult Health
DX: H10.31 Unspecified acute conjunctivitis, right eye (principal); I10 Essential (primary) hypertension; E66.9 Obesity, unspecified; Z68.42 Body mass index [BMI] 45.0-49.9, adult; F41.9 Anxiety disorder, unspecified
CPT/HCPCS: 99213; G0463